=== PATIENT | female | born 1950 | race Caucasian/White ===

== ENCOUNTER 2022-02-06 07:52 | Outpatient (CLI) | payer MEDICARE, BC, SELFPAY ==
--- NOTE | 2022-02-06 08:15 | CRLHL7_ITS ---
For Patients: As a result of the Century Cures Act, medical imaging exams and procedure reports are released immediately into your electronic medical record. You may view this report before your referring provider. If you have questions, please contact your health care provider. BILATERAL SCREENING MAMMOGRAM WITH COMPUTER-AIDED DETECTION AND TOMOSYNTHESIS TECHNIQUE: CC and MLO views were obtained. These mammographic images have been obtained using full-field digital technique. These mammographic images were interpreted with the benefit of computer-aided detection. Breast Tomosynthesis was used in this interpretation. COMPARISON FILM: 07/12/20, 05/25/19, 05/23/2018. FINDINGS: There are scattered areas of fibroglandular density IMPRESSION: There is no radiographic evidence for malignancy. ASSESSMENT: BI-RADS Category 1: Negative RECOMMENDATION: Routine screening mammogram in 1 year. A lay language report of this examination will be provided to the patient. Vic Melvin M.D. Diagnostic Radiologist [email or web address] IVAN/Dictated by: Vic Melvin MD @ 02/09/2022 10:20:00 AM (Electronically Signed)
== END 2022-02-06 07:53 | disposition home or self-care (01) ==
LOC: MAMMO 07:56
PROVIDERS: PCP Family Medicine; Visit Provider Family Medicine
DX: Z12.31 Encounter for screening mammogram for malignant neoplasm of breast (principal)
CPT/HCPCS: 77063; 77067

== ENCOUNTER 2022-07-08 10:39 | Emergency (ER) | payer MEDICARE, BC, SELFPAY ==
[2022-07-08] VITALS (26 sets, daily range): BP systolic 141–171; BP diastolic 84–98; PULSE 67–86; RESP 18; TEMP 37.3; O2SAT 95–100; BMI 27.8
[2022-07-08 11:37] LABS: Basophils Absolute Auto 0.03 K/uL (0.00-0.30); Basophils Percent Auto 0.3 % (0.0-3.0); Eosinophils Absolute Auto 0.14 K/uL (0.00-0.50); Eosinophils Percent Auto 1.6 % (0.0-7.0); Hematocrit 41.9 % (33.0-51.0); Hemoglobin* 13.9 gm/dL (12.0-16.0); Immature Granulocytes Pct Auto 1.1 %; Lymphocytes Absolute Auto 3.66 K/uL (0.90-2.90); Lymphocytes Percent Auto 41.4 % (20-44); Mean Corpuscular HGB Conc 33 gm/dL (32-36); Mean Corpuscular Hemoglobin 30 pg (26-34); Mean Corpuscular Volume 91 fL (80-100); Neutrophils Absolute Auto 4.38 K/uL (1.7-7.0); Neutrophils Percent Auto 49.6 % (42.0-72.0); Platelet Count* 268 K/uL (140-440); RDW Coefficient of Variation % 12.5 % (11.5-15.5); White Blood Count* 8.84 K/uL (4.50-11.00)
[2022-07-08 11:45] LABS: Slide Review Reflex No
[2022-07-08 11:50] LABS: Albumin* 4.3 g/dL (3.3-5.0); Chloride* 107 mmol/L (96-114); Potassium* 4.3 mmol/L (3.6-5.1); Sodium* 143 mmol/L (135-149)
[2022-07-08 11:52] LABS: Creatinine* 0.8 mg/dL (0.5-1.5); Est. Creatinine Clearance* 40.22; Estimated Glomerular Filt Rate 78 ml/min
[2022-07-08 11:53] LABS: Alanine Aminotransferase* 20 U/L (4-35); Alkaline Phosphatase* 86 U/L (40-150); Aspartate Amino Transferase* 18 U/L (12-35); Bilirubin Direct* 0.1 mg/dL (0.0-0.5); Bilirubin Total* 0.5 mg/dL (0.1-1.5); Blood Urea Nitrogen* 16 mg/dL (7-30); Calcium* 9.4 mg/dL (8.4-10.6); Carbon Dioxide* 30 mmol/L (20-32); Glucose* 110 mg/dL (60-115); Lipase* 135 U/L (23-300); Total Protein* 7.4 g/dL (6.0-8.3)
--- NOTE | 2022-07-08 11:59 | ED.GENADULT ---
HPI - General Adult General Date Seen: 07/08/22 Chief complaint: Chest Pain Stated complaint: Heart palpitations, chest pressure Time Seen by Provider: 07/08/22 11:01 Source: patient Mode of arrival: ambulatory Limitations: no limitations History of Present Illness HPI narrative: Patient is a 71-year-old woman who presents for evaluation of some left-sided chest pressure which has been present on and off for the past 4 days. Pain comes and goes, not particularly associated with any activity, position, or time of day. She says it was there pretty much all day on Saturday, sporadically since then. She presents on Saturday to the ER for evaluation. It does not really radiate. She has had shortness of breath on and off but not necessarily associated with the chest pressure. She denies any nausea or vomiting, no diarrhea, no abdominal pain, no fevers or cough. No unusual leg pain or swelling. She does have a history of gastroesophageal reflux and heartburn thought that the symptoms were may be related to heartburn. She took some ranitidine on Saturday and felt that was may be helpful. She does take Prilosec 20 mg daily for gastroesophageal reflux. However, she was talking to a friend who told her that she really should probably come get this checked out. Right now, symptoms are mild. She does not have any known coronary artery disease. Her dad had a bypass surgery in his 60s, mom had a heart attack in her 70s. She does not smoke, drinks rarely. Related Data Home Medications Medication Instructions Recorded Confirmed aspirin 81 mg chewable tablet 81 mg PO QDAY 12/19/21 04/10/22 bupropion HCl 150 mg 24 hr tablet, 150 mg PO QAM 12/19/21 04/10/22 extended release carvedilol 6.25 mg tablet 6.25 mg PO QDAY 12/19/21 04/10/22 omeprazole 20 mg capsule,delayed 20 mg PO QDAY 12/19/21 04/10/22 release pravastatin 40 mg tablet 40 mg PO QPM 12/19/21 04/10/22 Lactobacillus acidophilus 1 10 mg PO QDAY 04/09/22 04/09/22 billion cell capsule exxnhqh-qtrnuinpj-ymtr 333 mg-133 1 tab PO QDAY 04/09/22 04/09/22 mg-5 mg tablet ergocalciferol (vitamin D2) 10 mcg 1,000 unit PO DAILY 04/09/22 04/09/22 (400 unit) tablet Previous Rx's Medication Instructions Recorded pantoprazole 40 mg tablet,delayed 40 mg PO QDAY #90 tabs 04/10/22 release (Protonix) amlodipine 5 mg tablet 5 mg PO QDAY #90 tabs 04/30/22 Allergies Allergy/AdvReac Type Severity Reaction Status Date / Time citalopram Allergy Severe memory loss Verified 04/10/22 08:20 duloxetine Allergy Severe paranoid Verified 04/10/22 08:20 Fish Containing Products Allergy Severe SOB Verified 04/10/22 08:20 gabapentin Allergy Severe memory loss Verified 04/10/22 08:20 amitriptyline Allergy Intermediate feels drunk Verified 04/10/22 08:20 desipramine Allergy Intermediate Depression Verified 04/10/22 08:20 alprazolam Allergy Mild tired Verified 04/10/22 08:20 milnacipran Allergy Mild can't sleep Verified 04/10/22 08:20 morphine Allergy Mild Nausea Verified 04/10/22 08:20 risodronate Allergy Mild jaw pain Uncoded 04/10/22 08:20 Sulfa Antibiotics Allergy Unknown hives, Uncoded 04/10/22 08:20 respiratory Review of Systems Status of ROS: Reports: 10 or more systems reviewed and unremarkable except as noted in History and below [facility] Medical History Allergic rhinitis Anxiety and depression Fibromyalgia Gastroesophageal reflux disease History of adenomatous polyp of colon (04/2018) History of cystocele (2006) Hyperlipidemia Hypertension Insomnia Osteopenia Surgical History History of inguinal hernia repair (02/22/10) History of laparoscopic appendectomy (10/25/07) History of total abdominal hysterectomy and bilateral salpingo-oophorectomy (1991) Hx of bilateral cataract extraction Family History Mother Colon cancer Social History Narrative: , 2 kids, non-smoker, social EtOH, retired Smoking Status: Never smoker How often do you have a drink containing alcohol: never How often do you have six or more drinks on one occasion: Never AUDIT-C Alcohol total score: 0 Non-prescribed substance use: denies use Little interest or pleasure in doing things: not at all Feeling down, depressed, or hopeless: not at all Exam Narrative: Exam Narrative: Vital signs as noted above. In general, an alert, well-appearing patient. Head: Normocephalic, atraumatic. Eyes: Pupils are equal reactive. Extraocular movements are full. Conjunctivae are normal. ENT: Mucous membranes are moist. Throat is normal. Neck: Supple without lymphadenopathy. Heart: Regular rate and rhythm. No murmur or rub. Chest wall is mildly tender to palpation in the left upper chest. No rash or lesion. Lungs: Clear bilaterally. No increased work of breathing, crackles or wheezes. Abdomen: Soft and nontender. No organomegaly. Extremities: Well perfused. No edema. No calf tenderness. Pulses intact. Neurologic: Patient is alert and oriented to person and place. Speech is fluent. Face is symmetric. Moves all extremities equally. Affect: Normal. Skin: Warm and dry. Well perfused. Const: Vital Signs, click to edit/add: Vital Signs - 24 hr 07/08/22 10:47 07/08/22 11:12 07/08/22 10:53 Temperature 99.2 F Pulse Rate 74 Pulse Rate [Right Pulse Oximeter] 77 Respiratory Rate 18 Blood Pressure Blood Pressure [Ri ght Upper Arm] 171/98 H Pulse Oximetry 100 98 99 Oxygen Delivery Me thod Room Air 07/08/22 11:00 07/08/22 11:01 07/08/22 11:02 Temperature Pulse Rate 78 81 83 Pulse Rate [Right Pulse Oximeter] Respiratory Rate Blood Pressure 147/96 H Blood Pressure [Ri ght Upper Arm] Pulse Oximetry 99 99 100 Oxygen Delivery Me thod 07/08/22 11:15 07/08/22 11:30 07/08/22 11:31 Temperature Pulse Rate 78 79 77 Pulse Rate [Right Pulse Oximeter] Respiratory Rate Blood Pressure 151/90 H Blood Pressure [Ri ght Upper Arm] Pulse Oximetry 95 98 96 Oxygen Delivery Me thod 07/08/22 11:32 07/08/22 11:45 07/08/22 12:00 Temperature Pulse Rate 86 71 73 Pulse Rate [Right Pulse Oximeter] Respiratory Rate Blood Pressure Blood Pressure [Ri ght Upper Arm] Pulse Oximetry 98 97 98 Oxygen Delivery Me thod 07/08/22 12:01 07/08/22 12:15 07/08/22 12:30 Temperature Pulse Rate 74 76 73 Pulse Rate [Right Pulse Oximeter] Respiratory Rate Blood Pressure 154/89 H Blood Pressure [Ri ght Upper Arm] Pulse Oximetry 97 99 96 Oxygen Delivery Me thod 07/08/22 12:31 07/08/22 12:48 07/08/22 13:00 Temperature Pulse Rate 80 81 71 Pulse Rate [Right Pulse Oximeter] Respiratory Rate Blood Pressure 141/93 H Blood Pressure [Ri ght Upper Arm] Pulse Oximetry 97 97 98 Oxygen Delivery Me thod 07/08/22 13:01 07/08/22 13:15 07/08/22 13:27 Temperature Pulse Rate 71 67 69 Pulse Rate [Right Pulse Oximeter] Respiratory Rate Blood Pressure 148/90 H Blood Pressure [Ri ght Upper Arm] Pulse Oximetry 98 96 98 Oxygen Delivery Me thod 07/08/22 13:30 07/08/22 13:31 07/08/22 13:32 Temperature Pulse Rate 67 71 71 Pulse Rate [Right Pulse Oximeter] Respiratory Rate Blood Pressure 147/87 H Blood Pressure [Ri ght Upper Arm] Pulse Oximetry 98 97 99 Oxygen Delivery Me thod 07/08/22 13:45 Temperature Pulse Rate 67 Pulse Rate [Right Pulse Oximeter] Respiratory Rate Blood Pressure Blood Pressure [Ri ght Upper Arm] Pulse Oximetry 98 Oxygen Delivery Me thod Course Course Hospital Course: EKG by my review shows a normal sinus rhythm, ventricular rate of 77 beats per minute. No acute ST segment changes. T-waves are unremarkable. Initial point of care troponin is 0. She takes a baby aspirin daily, did give her of 324 mg aspirin here. CBC shows a normal white blood cell count, hemoglobin of 13.9, normal platelets. Metabolic panel shows normal electrolytes, BUN of 16, creatinine 0.8, LFTs are normal and CRP is less than 0.5. Lipase is 135. She does not have any abdominal pain or tenderness, my suspicion for cholecystitis, biliary colic, pancreatitis is low. Certainly gastritis/peptic ulcer disease/gastroesophageal reflux remains a possibility for her symptoms given her past history. D-dimer did ultimately returned elevated at 0.9 and therefore I did a CT scan of the chest with contrast. By my review this did not show any significant PE. Final radiology report is as follows: 1. No acute pulmonary embolism. 2. Small centrilobular opacities within the peripheral dependent aspects the lungs suggesting small airways inflammation. There is no lung consolidation. Lungs are clear here, I do not hear any bronchospasm. O2 sats are normal. It is not clear to me that airway inflammation is causing a significant role in her symptoms. Certainly nothing to suggest need for antibiotics. Troponins are 0 x 2. Currently she is feeling well. I think it is reasonable to let her go home. Did discuss that while I think we have effectively ruled out a non-STEMI in the past several days, we have not ruled out the possibility of coronary artery disease, and I do think a stress test would be reasonable as an outpatient. I have asked her to follow up with Dr. Verdin this week. If at any time she has severe worsening symptoms, return to the emergency department. Continue aspirin. I do think it would also be reasonable to increase her omeprazole 40 mg daily and see if her symptoms are improved at all on that regimen. She is comfortable with that plan Vital Signs Vital signs: Initial Vital Signs Temperature 99.2 F 07/08/22 10:47 Temperature Source Temporal Artery Scan 07/08/22 10:47 Pulse Rate 77 07/08/22 10:47 Respiratory Rate 18 07/08/22 10:47 Blood Pressure 171/98 H 07/08/22 10:47 Blood Pressure Mean 122 07/08/22 10:47 Blood Pressure Position Sitting 07/08/22 10:47 Pulse Oximetry 100 07/08/22 10:47 Oxygen Delivery Method 07/08/22 10:47 Vital Signs Temperature 99.2 F 07/08/22 10:47 Pulse Rate 77 07/08/22 10:47 Respiratory Rate 18 07/08/22 10:47 Blood Pressure 171/98 H 07/08/22 10:47 Pulse Oximetry 100 07/08/22 10:47 Oxygen Delivery Method 07/08/22 10:47 Temperature 99.2 F 07/08/22 10:47 Pulse Rate 67 07/08/22 13:45 Respiratory Rate 18 07/08/22 10:47 Blood Pressure 147/87 H 07/08/22 13:31 Pulse Oximetry 98 07/08/22 13:45 Oxygen Delivery Method 07/08/22 10:47 Medical Decision Making Lab Data Labs: Lab Results 07/08/22 07/08/22 07/08/22 Range/Units 11:15 11:27 11:27 WBC 8.84 (4.50-11.00) K/uL RBC 4.60 (4.00-5.20) m/uL Hgb 13.9 (12.0-16.0) gm/dL Hct 41.9 (33.0-51.0) % MCV 91 (80-100) fL MCH 30 (26-34) pg MCHC 33 (32-36) gm/dL RDW Coeff of Anders 12.5 (11.5-15.5) % Plt Count 268 (140-440) K/uL Neut % (Auto) 49.6 (42.0-72.0) % Lymph % (Auto) 41.4 (20-44) % [place] % (Auto) 6.0 (0.0-11.0) % Eos % (Auto) 1.6 (0.0-7.0) % Baso % (Auto) 0.3 (0.0-3.0) % Neut # (Auto) 4.38 (1.7-7.0) K/uL Lymph # (Auto) 3.66 H (0.90-2.90) K/uL [place] # (Auto) 0.50 (0.00-0.90) K/UL Eos # (Auto) 0.14 (0.00-0.50) K/uL Baso # (Auto) 0.03 (0.00-0.30) K/uL D-Dimer Quant (PE/DVT) 0.90 H (0.00-0.50) ug/ml Sodium (135-149) mmol/L Potassium (3.6-5.1) mmol/L Chloride (96-114) mmol/L Carbon Dioxide (20-32) mmol/L BUN (7-30) mg/dL Creatinine (0.5-1.5) mg/dL Estimated Creat Clear Estimated GFR ml/min Glucose (60-115) mg/dL Calcium (8.4-10.6) mg/dL Total Bilirubin (0.1-1.5) mg/dL Direct Bilirubin (0.0-0.5) mg/dL AST (12-35) U/L ALT (4-35) U/L Alkaline Phosphatase (40-150) U/L C-Reactive Protein (0.5-1.0) mg/dL NT-Pro-B Natriuret Pep pg/mL Total Protein (6.0-8.3) g/dL Albumin (3.3-5.0) g/dL Lipase (23-300) U/L POC Troponin I 0.00 L (0.01-0.04) ng/ml 07/08/22 07/08/22 Range/Units 11:27 13:11 WBC (4.50-11.00) K/uL RBC (4.00-5.20) m/uL Hgb (12.0-16.0) gm/dL Hct (33.0-51.0) % MCV (80-100) fL MCH (26-34) pg MCHC (32-36) gm/dL RDW Coeff of Anders (11.5-15.5) % Plt Count (140-440) K/uL Neut % (Auto) (42.0-72.0) % Lymph % (Auto) (20-44) % [place] % (Auto) (0.0-11.0) % Eos % (Auto) (0.0-7.0) % Baso % (Auto) (0.0-3.0) % Neut # (Auto) (1.7-7.0) K/uL Lymph # (Auto) (0.90-2.90) K/uL [place] # (Auto) (0.00-0.90) K/UL Eos # (Auto) (0.00-0.50) K/uL Baso # (Auto) (0.00-0.30) K/uL D-Dimer Quant (PE/DVT) (0.00-0.50) ug/ml Sodium 143 (135-149) mmol/L Potassium 4.3 (3.6-5.1) mmol/L Chloride 107 (96-114) mmol/L Carbon Dioxide 30 (20-32) mmol/L BUN 16 (7-30) mg/dL Creatinine 0.8 (0.5-1.5) mg/dL Estimated Creat Clear 40.22 Estimated GFR 78 ml/min Glucose 110 (60-115) mg/dL Calcium 9.4 (8.4-10.6) mg/dL Total Bilirubin 0.5 (0.1-1.5) mg/dL Direct Bilirubin 0.1 (0.0-0.5) mg/dL AST 18 (12-35) U/L ALT 20 (4-35) U/L Alkaline Phosphatase 86 (40-150) U/L C-Reactive Protein < 0.5 L (0.5-1.0) mg/dL NT-Pro-B Natriuret Pep < 20 pg/mL Total Protein 7.4 (6.0-8.3) g/dL Albumin 4.3 (3.3-5.0) g/dL Lipase 135 (23-300) U/L POC Troponin I 0.00 L (0.01-0.04) ng/ml Discharge Plan Discharge Clinical Impression: Chest pain Patient Disposition: Home, Self-Care Condition: Improved Instructions: Chest Pain (DC) Additional Instructions: Follow-up with Dr. Verdin this week, consider stress test to complete evaluation for possible cardiac chest pain. Increase omeprazole to 40 mg daily for the next week or so to see if that improves her symptoms. If at any time you have severe or worsening symptoms, return to the emergency department. Prescriptions: No Action ergocalciferol (vitamin D2) 10 mcg (400 unit) tablet 1,000 unit PO DAILY Lactobacillus acidophilus 1 billion cell capsule 10 mg PO QDAY [id number]-emjczsans-lrtn 333-133-5 mg tablet 1 tab PO QDAY pantoprazole [Protonix] 40 mg tablet,delayed release (DR/EC) 40 mg PO QDAY Qty: 90 1RF bupropion HCl 150 mg tablet extended release 24 hr 150 mg PO QAM carvedilol 6.25 mg tablet 6.25 mg PO QDAY Rx Instructions: must administer with a meal/food omeprazole 20 mg capsule,delayed release(DR/EC) 20 mg PO QDAY pravastatin 40 mg tablet 40 mg PO QPM aspirin 81 mg tablet,chewable 81 mg PO QDAY amlodipine 5 mg tablet 5 mg PO QDAY Qty: 90 3RF Follow Up/Referrals: Vic Verdin MD [Primary Care Provider] - Stand Alone Forms: [facility] Info Instructions
[2022-07-08 12:02] LABS: C Reactive Protein* < 0.5 mg/dL (0.5-1.0)
[2022-07-08 12:03] LABS: NT Pro B Type NatriureticPept* < 20 pg/mL
--- NOTE | 2022-07-08 12:13 | CRLHL7_ITS ---
For Patients: As a result of the Cures Act, medical imaging exams and procedure reports are released immediately into your electronic medical record. You may view this report before your referring provider. If you have questions, please contact your health care provider. HISTORY: Chest pain. Elevated D-dimer. TECHNIQUE: Intravenous contrast enhanced CT of the chest. 95 mL Isovue 370 intravenous contrast administered. COMPARISON: No prior. FINDINGS: There is no acute pulmonary embolism. No thoracic aortic aneurysm. No pericardial effusion. No enlarged mediastinal or hilar lymph nodes. No enlarged axillary lymph nodes. There are small centrilobular reticulonodular opacities within the more dependent portions of the lungs suggesting small airways disease. There is no lung consolidation. No pleural effusion or pneumothorax. Small hiatal hernia. Mild degenerative changes spine. No acute fractures. IMPRESSION: 1. No acute pulmonary embolism. 2. Small centrilobular opacities within the peripheral dependent aspects the lungs suggesting small airways inflammation. There is no lung consolidation. Dictated by Sourav Muir MD @ 07/08/2022 1:44:34 PM Please note that all CT scans at this facility use dose modulation, iterative reconstruction, and/or weight-based dosing when appropriate to reduce radiation dose to as low as reasonably achievable. Dictated by: Sourav Muir MD @ 07/08/2022 13:44:38 (Electronically Signed)
== END 2022-07-08 14:10 | disposition home or self-care (01) ==
PROVIDERS: Emergency Provider Emergency Medicine; PCP Family Medicine
DX: R07.89 Other chest pain (principal)
CPT/HCPCS: 36415; 71260; 80048; 80076; 83690; 83880; 84484; 85025; 85379; 86140; 93005; 94761; 99284; 99285; Q9967

== ENCOUNTER 2022-07-24 12:36 | Outpatient (CLI) | payer MEDICARE, BC, SELFPAY ==
[2022-07-24 14:03] VITALS: BP 122/78; PULSE 83; RESP 18
--- NOTE | 2022-07-24 14:41 | W.PM.STED ---
Stress Test Note Date Time Seen by Provider: 13:49 Date Seen: 07/24/22 Date of test: 07/24/22 Providers Primary care provider: Vic Verdin Stress test physician: Yokasta Ortiz Stress Test Note Stress test ordered: Stress Echo Indication for test: Chest pain Stress test medicine: None Results discussion: Resting EKG: Sinus rhythm, 68 beats per minute. Resting blood pressure 132/78 Stress test: Patient exercised following standard Yobany protocol on the treadmill. She was able to exercise to 6 minutes 43 seconds, stopping due to exercise fatigue and shortness of breath. She had no chest pain. There was no definitive ischemia noted. She had occasional PVC seen. Patient achieved 8.1 Mets with this level of exercise. A maximum heart rate of 138 beats per minute was achieved with this being 109% of a calculated target heart rate [place] 126[place] [address]. Echo images are pending. Impression: Subjectively negative, objectively negative EKG portion of this stress test. Follow up suggested: Patient was discharged home in stable condition. She understands the echo images need to be read by Cardiology to couple this test for a full formal diagnostic test.
== END 2022-07-24 12:37 | disposition home or self-care (01) ==
PROVIDERS: PCP Family Medicine; Visit Provider Family Medicine
DX: R07.89 Other chest pain (principal)
CPT/HCPCS: 93016; 93325; 93351

== ENCOUNTER 2023-02-20 08:58 | Outpatient (CLI) | payer MEDICARE, BC, SELFPAY ==
--- NOTE | 2023-02-20 09:15 | CRLHL7_ITS ---
For Patients: As a result of the Century Cures Act, medical imaging exams and procedure reports are released immediately into your electronic medical record. You may view this report before your referring provider. If you have questions, please contact your health care provider. BILATERAL SCREENING MAMMOGRAM WITH COMPUTER-AIDED DETECTION AND TOMOSYNTHESIS TECHNIQUE: CC and MLO views were obtained. These mammographic images have been obtained using full-field digital technique. These mammographic images were interpreted with the benefit of computer-aided detection. Breast Tomosynthesis was used in this interpretation. COMPARISON FILM: 02/06/22, 05/23/18, 05/21/17. FINDINGS: There are scattered areas of fibroglandular density IMPRESSION: There is no radiographic evidence for malignancy. ASSESSMENT: BI-RADS Category 2: Benign RECOMMENDATION: Routine screening mammogram in 1 year. A lay language report of this examination will be provided to the patient. Vic Melvin M.D. Diagnostic Radiologist [email or web address] IVAN/Dictated by: Vic Melvin MD @ 02/20/2023 12:14:00 PM (Electronically Signed)
== END 2023-02-20 08:59 | disposition home or self-care (01) ==
LOC: MAMMO 08:59
PROVIDERS: PCP Family Medicine; Visit Provider Family Medicine
DX: Z12.31 Encounter for screening mammogram for malignant neoplasm of breast (principal)
CPT/HCPCS: 77063; 77067

== ENCOUNTER 2023-03-08 15:00 | Emergency (ER) | payer MEDICARE, BC, SELFPAY ==
[2023-03-08 15:09] VITALS: BP 155/91; PULSE 71; RESP 18; TEMP 36.6; O2SAT 99; BMI 28.0
--- NOTE | 2023-03-08 15:23 | ED_ITS ---
HPI - General Adult General Chief complaint: Back Injury/Pain Stated complaint: back pain,right leg Time Seen by Provider: 03/08/23 15:10 History of Present Illness HPI narrative: History of sitting abnormally today and having some pain in her back and right low leg. Starts in the sciatic notch radiates down her right lateral ankle. She has had degenerative disc disease noted on x-ray this summer with Dr. Verdin, she has done some chiropractic and PT in that is been helpful. Denies bowel or bladder change fever chills perineal numbness. No significant trauma. Related Data Home Medications Medication Instructions Recorded Confirmed aspirin 81 mg chewable tablet 81 mg PO QDAY 12/19/21 12/03/22 Lactobacillus acidophilus 1 10 mg PO QDAY 04/09/22 12/03/22 billion cell capsule zexaysy-fzcqsgwbt-yuis 333 mg-133 1 tab PO QDAY 04/09/22 12/03/22 mg-5 mg tablet ergocalciferol (vitamin D2) 10 mcg 1,000 unit PO DAILY 04/09/22 12/03/22 (400 unit) tablet albuterol sulfate 90 mcg/actuation 2 inh inhalation Q4H PRN 09/25/22 12/03/22 breath activated powder inhaler Previous Rx's Medication Instructions Recorded famotidine 40 mg tablet 40 mg PO QHS #90 tabs 09/25/22 bupropion HCl 300 mg 24 hr tablet, 300 mg PO QAM #90 tabs 12/03/22 extended release cyclobenzaprine 5 mg tablet 5 mg PO QHS #30 tabs 12/03/22 naproxen 500 mg tablet 500 mg PO BID #60 tabs 12/03/22 carvedilol 6.25 mg tablet 6.25 mg PO QDAY #90 tabs 12/13/22 pravastatin 40 mg tablet 40 mg PO QHS #90 tabs 12/21/22 amlodipine 5 mg tablet 5 mg PO QDAY #90 tabs 01/30/23 pantoprazole 40 mg tablet,delayed 40 mg PO QDAY #90 tabs 01/30/23 release (Protonix) hydrocodone 7.5 mg-acetaminophen 1 tab PO Q8H PRN pain #14 tabs 03/08/23 325 mg tablet prednisone 20 mg tablet 20 mg PO BID #10 tabs 03/08/23 Allergies Allergy/AdvReac Type Severity Reaction Status Date / Time citalopram Allergy Severe memory loss Verified 12/03/22 11:24 duloxetine Allergy Severe paranoid Verified 12/03/22 11:24 Fish Containing Products Allergy Severe SOB Verified 12/03/22 11:24 gabapentin Allergy Severe memory loss Verified 12/03/22 11:24 amitriptyline Allergy Intermediate feels drunk Verified 12/03/22 11:24 desipramine Allergy Intermediate Depression Verified 12/03/22 11:24 alprazolam Allergy Mild tired Verified 12/03/22 11:24 milnacipran Allergy Mild can't sleep Verified 12/03/22 11:24 morphine Allergy Mild Nausea Verified 12/03/22 11:24 risodronate Allergy Mild jaw pain Uncoded 12/03/22 11:24 Sulfa Antibiotics Allergy Unknown hives, Uncoded 12/03/22 11:24 respiratory Review of Systems Status of ROS: Reports: 6 or more systems reviewed and unremarkable except as noted in History and below [facility] Medical History (Updated 03/08/23 @ 15:28 by Dre Price MD) Primary hypertension ?I10 - Essential (primary) hypertension (ICD-10) Mixed hyperlipidemia ?E78.2 - Mixed hyperlipidemia (ICD-10) Osteopenia ?M85.80 - Other specified disorders of bone density and structure, unspecified site (ICD-10) Insomnia ?G47.00 - Insomnia, unspecified (ICD-10) History of cystocele (2006) ?Z87.448 - Personal history of other diseases of urinary system (ICD-10) History of adenomatous polyp of colon (04/2018) ?Z86.010 - Personal history of colonic polyps (ICD-10) Gastroesophageal reflux disease ?K21.9 - Gastro-esophageal reflux disease without esophagitis (ICD-10) Fibromyalgia ?M79.7 - Fibromyalgia (ICD-10) Anxiety and depression ?F41.9 - Anxiety disorder, unspecified (ICD-10) ?F32.A - Depression, unspecified (ICD-10) Allergic rhinitis ?J30.9 - Allergic rhinitis, unspecified (ICD-10) Surgical History (Updated 07/30/22 @ 03:15 by Vic Verdin MD) Hx of bilateral cataract extraction ?Z98.41 - Cataract extraction status, right eye (ICD-10) ?Z98.42 - Cataract extraction status, left eye (ICD-10) History of total abdominal hysterectomy and bilateral salpingo-oophorectomy (1991) ?Z90.710 - Acquired absence of both cervix and uterus (ICD-10) ?Z90.722 - Acquired absence of ovaries, bilateral (ICD-10) ?Z90.79 - Acquired absence of other genital organ(s) (ICD-10) History of laparoscopic appendectomy (10/25/07) ?Z90.49 - Acquired absence of other specified parts of digestive tract (ICD- 10) History of inguinal hernia repair (02/22/10) ?Z98.890 - Other specified postprocedural states (ICD-10) ?Z87.19 - Personal history of other diseases of the digestive system (ICD-10) Family History (Updated 07/30/22 @ 03:12 by Vic Verdin MD) Mother Colon cancer Diabetes Stroke Father Coronary artery disease, Onset Age: 65 Social History Narrative: , 2 kids, non-smoker, social EtOH, retired Smoking Status: Never smoker How often do you have a drink containing alcohol: never How often do you have six or more drinks on one occasion: Never AUDIT-C Alcohol total score: 0 Non-prescribed substance use: denies use Little interest or pleasure in doing things: more than half the days Feeling down, depressed, or hopeless: more than half the days Exam Narrative: Exam Narrative: Objective: Patient's vital signs look largely unremarkable other than her blood pressure is little elevated Negative straight leg raise bilaterally, mild pain and tenderness in the right paravertebral muscles of the right low back. No warmth erythema Ambulates without difficulty Lower extremity strength is normal Const: Vital Signs, click to edit/add: Vital Signs - 24 hr 03/08/23 15:09 Temperature 97.9 F Pulse Rate [Pulse Oximeter] 71 Respiratory Rate 18 Blood Pressure [Ri ght Upper Arm] 155/91 H Pulse Oximetry 99 Oxygen Delivery Me thod Room Air Course Vital Signs Vital signs: Initial Vital Signs Temperature 97.9 F 03/08/23 15:09 Temperature Source Temporal Artery Scan 03/08/23 15:09 Pulse Rate 71 03/08/23 15:09 Respiratory Rate 18 03/08/23 15:09 Blood Pressure 155/91 H 10/13/23 15:09 Blood Pressure Mean 112 H 03/08/23 15:09 Blood Pressure Position Supine 03/08/23 15:09 Pulse Oximetry 99 03/08/23 15:09 Oxygen Delivery Method Room Air 03/08/23 15:09 Vital Signs Temperature 97.9 F 03/08/23 15:09 Pulse Rate 71 03/08/23 15:09 Respiratory Rate 18 03/08/23 15:09 Blood Pressure 155/91 H 03/08/23 15:09 Pulse Oximetry 99 03/08/23 15:09 Oxygen Delivery Method Room Air 03/08/23 15:09 Temperature 97.9 F 03/08/23 15:09 Pulse Rate 71 03/08/23 15:09 Respiratory Rate 18 03/08/23 15:09 Blood Pressure 155/91 H 03/08/23 15:09 Pulse Oximetry 99 03/08/23 15:09 Oxygen Delivery Method Room Air 03/08/23 15:09 Medical Decision Making MDM Narrative Medical decision making narrative: Patient has a history of low back pain and some leg pain, now with known L4 degenerative disease by prior x-ray by her history. The patient has what a ppears to be a radiculitis occurring, does not appear to have any swelling in the leg or DVT symptoms. Fairly sudden onset. At this point would recommend anti-inflammatory in the form of naproxen she is taking, add prednisone 20 b.i.d. starting tomorrow for few days will also give 50 mg now, will give her Mcintosh now and then Mcintosh for home to use as needed. Follow up with primary care in the next 2-3 days certainly sooner changes or concerns. May need additional imaging physical therapy and chiropractic r other treatments for now I think we can simply treat for pain and inflammation and see if that gets better, she was comfortable this. Discharge Plan Discharge Clinical Impression: Radiculitis, Acute low back pain Patient Disposition: Home w/ Parent or Adult Condition: Stable Additional Instructions: Prednisone as prescribed, may continue the Naprosyn, would also use Mcintosh sparingly for significant pain. Recheck with regular doctor next couple of days certainly sooner changes or concerns. Activity Level: Light activity Discharge Diet: Regular Prescriptions: New hydrocodone-acetaminophen 7.5-325 mg tablet 1 tab PO Q8H PRN (Reason: pain) Qty: 14 0RF prednisone 20 mg tablet 20 mg PO BID Qty: 10 0RF No Action ergocalciferol (vitamin D2) 10 mcg (400 unit) tablet 1,000 unit PO DAILY Lactobacillus acidophilus 1 billion cell capsule 10 mg PO QDAY xpbrcse-wgugvgofc-bhte 333-133-5 mg tablet 1 tab PO QDAY albuterol sulfate 90 mcg/actuation aerosol powdr breath activated 2 inh inhalation Q4H PRN famotidine 40 mg tablet 40 mg PO QHS Qty: 90 3RF naproxen 500 mg tablet 500 mg PO BID Qty: 60 2RF cyclobenzaprine 5 mg tablet 5 mg PO QHS Qty: 30 1RF bupropion HCl 300 mg tablet extended release 24 hr 300 mg PO QAM Qty: 90 1RF aspirin 81 mg tablet,chewable 81 mg PO QDAY carvedilol 6.25 mg tablet 6.25 mg PO QDAY Qty: 90 1RF Rx Instructions: must administer with a meal/food pravastatin 40 mg tablet 40 mg PO QHS Qty: 90 1RF pantoprazole [Protonix] 40 mg tablet,delayed release (DR/EC) 40 mg PO QDAY Qty: 90 3RF amlodipine 5 mg tablet 5 mg PO QDAY Qty: 90 3RF Follow Up/Referrals: Vic Verdin MD [Primary Care Provider] - Stand Alone Forms: MyHealth Info Instructions
[2023-03-08] MEDS: predniSONE 10 MG TABLET 50 MG PO (15:41)
[2023-03-08] MEDS: HYDROCODONE/ACETAMIN 7.5-325 TABLET 1 TAB PO (15:41)
== END 2023-03-08 15:59 | disposition home or self-care (01) ==
LOC: ED 15:39
PROVIDERS: Emergency Provider Family Medicine; PCP Family Medicine
DX: M54.16 Radiculopathy, lumbar region (principal)
CPT/HCPCS: 99283; 99284; A9270; J7512

== ENCOUNTER 2023-07-23 09:42 | Outpatient (CLI) | payer MEDICARE, BC, SELFPAY | END 2023-07-23 09:43 | disposition home or self-care (01) | PROVIDERS: PCP Family Medicine; Visit Provider Family Medicine | DX: E78.2 Mixed hyperlipidemia (principal); I10 Essential (primary) hypertension | CPT/HCPCS: 80048; 80061; 84460; 85025 ==

== ENCOUNTER 2023-08-08 09:28 | Outpatient (CLI) | payer MEDICARE, BC, SELFPAY ==
--- NOTE | 2023-08-08 11:18 | W.ANESCHARGE ---
Anesthesia Charges Start Date/Time Anesthesia Start Date: 08/08/23 Anesthesia Start Time: 10:40 Stop Date/Time Anesthesia Stop Date: 08/08/23 Anesthesia Stop Time: 11:17
--- NOTE | 2023-08-08 12:14 | W.ANESCHARGE ---
Anesthesia Charges Start Date/Time Anesthesia Start Date: 08/08/23 Anesthesia Start Time: 10:40 Stop Date/Time Anesthesia Stop Date: 08/08/23 Anesthesia Stop Time: 11:17 Summary Extremes of Age - Over 70 or under 1: MDA
== END 2023-08-08 09:29 | disposition home or self-care (01) ==
LOC: OP CLINIC 09:28
PROVIDERS: PCP Family Medicine; Visit Provider Surgery
DX: Z12.11 Encounter for screening for malignant neoplasm of colon (principal); K63.5 Polyp of colon; K62.1 Rectal polyp; Z80.0 Family history of malignant neoplasm of digestive organs; Z86.010 Personal history of colon polyps
CPT/HCPCS: 00811; 45385; 88305; 99100; J2405; J2704

== ENCOUNTER 2023-09-26 12:30 | Outpatient (CLI) | payer MEDICARE, BC, SELFPAY ==
--- OUTSIDE RECORDS SUMMARY | 2023-09-26 12:33 | XMS_ITS | Clinical Summary ---
Author Name Unknown Organization [facility] Address [address] [place] [address] Care Team Providers Care Surface Hydrologist Name Role Phone Mau Chirinos Primary Care Provider [phone] Nathan Michele MD Unavailable [phone] Allergies Active Allergy Reactions Criticality Noted Date Comments Duloxetine Hcl 02/20/2013 Sulfa Antibiotics Shortness Of Breath,Rash High 01/25 Medications Medication Sig Dispensed Refills Start Date End Date Status amLODIPine (NORVASC) 5 MG tablet Take 5 mg by mouth daily Active aspirin 81 MG EC tablet Take 81 mg by mouth daily Active buPROPion (WELLBUTRIN SR) 150 MG 12 hr tablet Take 150 mg by mouth 2 times daily Active carvedilol (COREG) 6.25 MG tablet Take 6.25 mg by mouth 2 times daily (with meals) Active pravastatin (PRAVACHOL) 40 MG tablet Take 40 mg by mouth daily Active pantoprazole sodium (PROTONIX) 40 MG packet Take 1 packet by mouth daily Active Probiotic Product (PROBIOTIC PO) Active VITAMIN D PO Active Ibcvpqz-Pafdgcvpa-Qjrc 333-133-5 MG TABS per tablet Take 1 tablet by mouth daily Active Active Problems No known active problems Social History Tobacco Use Types Packs/Day Years Used Date Smoking Tobacco: Never Smokeless Tobacco: Never Tobacco Cessation:Counseling Given: Not Answered Alcohol Use Standard Drinks/Week Comments No 0 (1 standard drink = 0.6 oz pur e alcohol) Adolescent Education Answer Date Record ed Getting School Help Needed Not on file 02/15 Sex and Gender Information Value Date Recorded Sex Assigned at Not on file Gender Identity Not on file Sexual Orientation Not on file Last Filed Vital Signs Vital Sign Reading Time Taken Comments Blood Pressure 120/80 07/12/2022 10:05 AM DYE LAB TECHNICIAN Pulse 90 07/12/2022 10:05 AM DYE LAB TECHNICIAN Temperature 36.7 ??C (98 ??F) 02/23/2013 12:53 PM CDT Respiratory Rate 16 02/23/2013 12:45 PM CDT Oxygen Saturation 93% 02/23/2013 12:53 PM CDT Inhaled Oxygen Concentration - - Weight 68 kg (150 lb) 07/12/2022 10:05 AM DYE LAB TECHNICIAN Pt reported Height 157.5 cm (5' 2) 07/12/2022 10:05 AM DYE LAB TECHNICIAN Pt reported Body Mass Index 27.44 07/12/2022 10:05 AM DYE LAB TECHNICIAN Plan of Treatment Health Maintenance Due Date Last Done Comments ADVANCE CARE PLANNING 1949 ANNUAL REVIEW OF HM ORDERS 1949 CT COLONOGRAPHY 1949 DEXA 1949 FIT 1949 FLEX SIG 1949 GLUCOSE 1949 LIPID 1949 MAMMO SCREENING 1949 sDNA (Cologuard) 1949 COLONOSCOPY 12/28/1959 COLORECTAL CANCER SCREENING 12/28/1959 HEPATITIS C SCREENING 12/28/1967 ZOSTER IMMUNIZATION (1 of 2) 12/28/1999 RSV VACCINE ( & 60+) (1 - 1-dose 60+ series) 2009 FALL RISK ASSESSMENT 2014 MEDICARE ANNUAL WELLNESS VISIT 2014 DTAP/TDAP/TD IMMUNIZATION (1 - Tdap) 09/29/2015 09/28/2015, 11/20/2005 COVID-19 Vaccine ( - season) 2023 PHQ-2 (once per calendar year) 2023 INFLUENZA VACCINE (Season Ended) 2024 03/17/2015, 03/04/2014, 04/01/2012, Additional history exists Pneumococcal Vaccine: 65+ Years Completed 05/23/2018, 03/17/2015 HPV IMMUNIZATION Aged Out No longer e ligible based on patient's age to complete this topic IPV IMMUNIZATION Aged Out No longer e ligible based on patient's age to complete this topic MENINGITIS IMMUNIZATION Aged Out No l onger eligible based on patient's age to complete this topic RSV MONOCLONAL ANTIBODY Aged Out No l onger eligible based on patient's age to complete this topic Medical Devices Implanted Type Area Ledger Poster Device Identifier Shelf Expiration Date Model / Serial / Lot Mesh Ultrapro Hernia Oval [id number] Uhsov Implanted:Qty: 1 on 02/23/2013 by Nathan Michele MD at [facility] Left: Groin 10/23/2013 [facility] / / [id number] Care Teams Surface Hydrologist Relationship Specialty Start Date End Date Ph[place], Phunt [facility] [address] [facility] [place] [address] PCP - General Internal Medicine 02/02/13 Nathan Michele MD [address] [facility] [place] [address] Assigned Surgical Provider 07/21/22
--- OUTSIDE RECORDS SUMMARY | 2023-09-26 12:33 | XMS_ITS | Clinical Summary ---
Author Name Unknown Organization [facility] Address [place], [place] [address] Care Team Providers Care Public Works Commissioner Name Role Phone Mau Chirinos MB Primary Care Provider [phone] Allergies Active Allergy Reactions Criticality Noted Date Comments Alprazolam Other - Describe In Comment Field 05/01/2018 Sedated feeling Amitriptyline Other - Describe In Comment Field 05/01/2018 feels drunk Citalopram Other - Describe In Comment Field 05/01/2018 Loss of memory Desipramine Other - Describe In Comment Field 05/01/2018 Fowler depressed Duloxetine Other - Describe In Comment Field 05/01/2018 paranoia Fish Containing Products Shortness Of Breath 05/01/2018 Gabapentin Other - Describe In Comment Field 05/01/2018 Memory loss Milnacipran Sleep Disturbances 05/01/2018 Morphine Nausea And Vomiting 05/01/2018 Sulfa (Sulfonamide Antibiotics) Shortness Of Breath,Rash 07/13/2015 Medications Medication Sig Dispensed Refills Start Date End Date Status alendronate (FOSAMAX) 70 mg tabletIndications:postm enopausal osteoporosis Take 70 mg by mouth once a week in the morning. 10/04/2017 Active buPROPion (WELLBUTRIN XL) 150 mg Extended-Release tabletIndications:anxie ty with depression Take 150 mg by mouth once daily. 10/04/2017 Active SPCJFTO-OYXVKRAWE-STMR ORALIndications:supplem ent Take 1 tablet by mouth once daily. 01/26/2010 Active ERGOCALCIFEROL, VITAMIN D2, ORALIndications:vitamin supplement Take 1,000 Int'l Units by mouth once daily. 09/28/2009 Active ibuprofen (ADVIL; MOTRIN) 200 mg tablet Take 2 tablets by mouth every 4 hours if needed for Pain or Headache. 09/11/2010 Active Lactobacillus acidophilus (PROBIOTIC ORAL)Indications:digest oswaldo aid Take 1 capsule by mouth once daily. 04/01/2012 Active Melatonin 5 mg tab Take 1 tablet by mouth at bedtime if needed for Sleep. 03/12/2012 Active Coenzyme Q10 (CO Q-10) 10 mg cap Take 300 mg by mouth once daily. Active Active Problems No known active problems Encounters Date Type Department Care Team Description 08/08/2023 Lab Requisition [facility] [phone] Jennifer Barroso MD from Last 3 Months Social History Tobacco Use Types Packs/Day Years Used Date Smoking Tobacco: Never Smokeless Tobacco: Never Alcohol Use Standard Drinks/Week Comments Not Currently 0 (1 standard drink = 0.6 oz pur e alcohol) Sex and Gender Information Value Date Recorded Sex Assigned at Not on file Gender Identity Not on file Sexual Orientation Not on file Obstetrics History Last Filed Vital Signs Vital Sign Reading Time Taken Comments Blood Pressure 140/82 06/01/2019 10:09 AM BENCH TOOL MAKER Pulse 88 06/01/2019 10:09 AM BENCH TOOL MAKER Temperature 36.3 ??C (97.4 ??F) 05/06/2018 11:[address] Respiratory Rate 18 06/01/2019 10:09 AM BENCH TOOL MAKER Oxygen Saturation 99% 05/06/2018 12:15 PM BENCH TOOL MAKER Inhaled Oxygen Concentration - - Weight 67 kg (147 lb 12.8 oz) 05/06/2018 10:31 A M [employer]CH TOOL MA[employer] Height 154.9 cm (5' 1) 05/06/2018 10:31 AM BENCH TOOL MAKER Body Mass Index 27.93 05/06/2018 10:31 AM BENCH TOOL MAKER Plan of Treatment Health Maintenance Due Date Last Done Comments Tdap 1960 Depression screening for age 12+ 1961 BMI (ht and wt on same day) for age 18+ 12/28/1967 Hepatitis C screening for age 18-79 12/28/1967 Tetanus booster 1969 Lipids for age 45-75 1994 Mammogram for age 45-75 1994 Zoster (shingles) series for age 50+ (1 of 2) 12/28/19 00 DEXA/DXA scan for age 65+ 2014 Pneumococcal series for age 65+ (1 of 1 - PCV) 015 COVID-19 vaccine series (1 - season) 3 Influenza for age 65+ 01/26/2024 Colonoscopy through age 75 05/06/2028 05/06/2018 Procedures Procedure Name Priority Date/Time Associated Diagnosis Comments LAB TRACKING EVENT Routine 08/08/2023 10 :50 AM CDT PATH TISSUE EXAM Routine 08/08/2023 10:5 0 AM CDT COLONOSCOPY 05/06/2018 10:57 AM BENCH TOOL MAKER from Last 3 Months or Most Recently Relevant to Health Maintenance Results * LAB TRACKING EVENT (08/08/2023 10:50 AM CDT) Other (Other) Client Collect / Unknown 08/08/2023 10:50 AM CDT 08/08/2023 8:47 PM CDT Jennifer Barroso MD LAB BILL ONLY [facility] [address] [place] [id number], * PATH TISSUE EXAM (08/08/2023 10:50 AM CDT) Case Report Pathology Report ?Case: [id number] ? Authorizing Provider: ??Jennifer Barroso MD ?Collected: ? 08/08/2023 1050 ? Ordering Location: ? [facility] ?Received: ?08/08/20232114 ? Pathologist: ? Vivien Jin MD ? Specimens: ?? A) - Transverse Colon Polyp ? B) - Ascending Colon Polyp ? C) - Splenic Flexure Biopsy ? 08/09/2023 11:13 AM CDT [facility] Final Diagnosis A) COLON, TRANSVERSE, POLYPECTOMY: 1. Sessile serrated adenoma 2. Negative for overt dysplasia 3. Per the colonoscopy report: ?? a. Polyp size: 6 mm ?? b. Resection: Complete ?? c. Retrieval: Complete B) COLON, ASCENDING, POLYPECTOMIES: 1. Tubular adenomas (2) 2. Negative for high grade dysplasia 3. Per the colonoscopy report: ?? a. Polyp sizes: 3 mm - 4 mm ?? b. Resection: Complete ?? c. Retrieval: Complete C) COLON, SPLENIC FLEXURE, POLYPECTOMIES: 1. Tubular adenomas (2) 2. Negative for high grade dysplasia 3. Per the colonoscopy report: ?? a. Polyp sizes: 3 mm - 4 mm ?? b. Resection: Complete ?? c. Retrieval: Complete 08/09/2023 11:13 AM CDT [facility] Clinical Information Surveillance colonoscopy 08/09/2023 11:13 AM CDT [facility] Gross Description A) Received in formalin are 5 bernardo mucosal fragments ranging from 2 mm to 5 mm in greatest dimension, which are entirely submitted in one cassette. It is labeled with the patient's name and designated transverse colon polyp. B) Received in formalin are 9 bernardo mucosal fragments averaging 2 mm in greatest dimension, which are entirely submitted in one cassette. It is labeled with the patient's name and designated ascending colon polyp. C) Received in formalin are 12 bernardo mucosal fragments ranging from 2 mm to 5 mm in greatest dimension, which are entirely submitted in one cassette. It is labeled with the patient's name and designated splenic flexure biopsy. Markie Esteban 08/08/2023 9:21 PM 08/09/2023 11:13 AM CDT [facility] Microscopic Description The final diagnosis is based on microscopic examination of appropriate sections of all specimens. 08/09/2023 11:13 AM CDT [facility] Additional Information Interpreted at [facility] - [address] [facility] [address], [place] [address] 08/09/2023 11:13 AM CDT [facility] Other (Transverse Colon Polyp) 08/08/2023 10:50 AM CDT 08/08/2023 9:15 PM CDT Specimen (specimen) (Ascending Colon Polyp) 08/08/2023 10:50 AM CDT 08/08/2023 9:15 PM CDT Specimen (specimen) (Splenic Flexure Biopsy) 08/08/2023 10:50 AM CDT 08/08/2023 9:15 PM CDT Jennifer Barroso MD PATHOLOGY/CYTOLOGY [facility] [address] [place] [address], * COLONOSCOPY (05/06/2018 10:57 AM BENCH TOOL MAKER) 05/06/2018 10:5 7 AM BENCH TOOL MAKER Narrative Transcriptions Steve Walker MD - 05/06/2018 11:29 AM CST Patient Name: Zo Yang Procedure Date: 05/06/2018 Gender: Female Date of : 1950 Admit Type: Ambulatory Procedure: Colonoscopy Proceduralist: Valentin Walker [facility] Referring MD: Mau Chirinos Indications/Pre-Op Diagnosis: Surveillance: Personal history ofadenomatous polyps on last colonoscopy 5 years ago Medications: Propofol per Anesthesia Procedure Description: The procedure, indications, potential complications, (bleeding, perforation, infection, adverse medication reaction, missed lesionsor polyps) and alternatives available were explained to the patient, who appeared to understand and indicated this. Opportunity for questionswas provided and informed consent obtained. The colonoscopy was passed through the anus and advanced to thececum, identified by appendiceal orifice and ileocecal valve. Thecolonoscopy was performed with ease. The patient tolerated the procedure well.The quality of the bowel preparation was excellent. Complications: No immediate complications. Estimated Blood Loss & Specimen: Estimated blood loss was minimal. Specimen collected: Yes and sent to Laboratory Findings: The perianal and digital rectal examinations were normal. Pertinent negatives include normal sphincter tone. The terminal ileum appeared normal. A 3 mm polyp was found in the cecum. The polyp was sessile. The polyp was removed with a cold snare. Resection and retrieval werecomplete. Multiple small and large-mouthed diverticula were found in the recto-sigmoid colon and sigmoid colon. A 4 mm polyp was found in the rectum. The polyp was sessile. Thepolyp was removed with a cold snare. Resection and retrieval werecomplete. The exam was otherwise without abnormality. No additional abnormalities were found on retroflexion. Impressions/Post-Op Diagnosis: - The examined portion of the ileum was normal. - One 3 mm polyp in the cecum, removed with a cold snare. Resectedand retrieved. - Diverticulosis in the recto-sigmoid colon and in the sigmoidcolon. - One 4 mm polyp in the rectum, removed with a cold snare. Resectedand retrieved. - The examination was otherwise normal. Recommendation: - Await pathology results. - Dr. Walker's office will contact you with biopsy/pathology results when available. Moderate Sedation: Deep sedation per anesthesia. Valentin Walker, 05/06/2018 11:29:18 AM This report has been signed electronically. Note Initiated On: 05/06/2018 10:57 AM Steve Walker MD PROCEDURE ORD from Last 3 Months or Most Recently Relevant to Health Maintenance Insurance Payer Benefit Plan / Group Subscriber ID Effective Dates Phone Address Type MEDICARE PART B - HB USE ONLY MEDICARE PART B HB ONLY [id number] 2014-Presen t ATTN: CLAIMS [address] [place] [address] MEDICARE PART B - HB USE ONLY MEDICARE PART B HB ONLY [id number] 2014-Presen t ATTN: CLAIMS [address] [place] [address] BLUE [employer]OSS MR MR [place] [id number] 2015-P resen t [address] [place] [address] [employer] [place] [place] BLUE HB ONLY [id number] 2017-Prese nt [address] [address] [place] [address] BLUE [place]OSS MR [place] BLUE MR PB ONLY [id number] 2017-Prese nt [address] [address] [place] [address] Advance Directives * Full Code (Latest Code Status on File) Date Activated Date Inactivated Comments 05/06/2018 10:04 AM 05/06/2018 3:27 PM Care Teams Public Works Commissioner Relationship Specialty Start Date End Date Mau Chirinos MBBS [address] [place] [address] [place] [address] PCP - General Internal Medicine 05/01/18
--- OUTSIDE RECORDS SUMMARY | 2023-09-26 12:33 | XMS_ITS | Referral Summary ---
Author Name Unknown Organization [facility] Address [address] [place] [address] Care Team Providers Care Fuse Cutter Name Role Phone Mau Chirinos Primary Care Provider [phone] Nathan Michele MD Unavailable [phone] Allergies Active Allergy Reactions Criticality Noted Date [...] (PROBIOTIC PO) Active VITAMIN D PO Active Cailiyy-Ybqocldyp-Ioif 333-133-5 MG TABS per tablet Take 1 [...] Comments Blood Pressure 120/80 07/12/2022 10:05 AM STAFF CERTIFIED NURSE MIDWIFE Pulse 90 07/12/2022 10:05 AM STAFF CERTIFIED NURSE MIDWIFE Temperature 36.7 ??C (98 ??F) 02/23/2013 12:53 PM CDT Respiratory Rate 16 02/23/2013 12:45 PM CDT Oxygen Saturation 93% 02/23/2013 12:53 PM CDT Inhaled Oxygen Concentration - - Weight 68 kg (150 lb) 07/12/2022 10:05 AM STAFF CERTIFIED NURSE MIDWIFE Pt reported Height 157.5 cm (5' 2) 07/12/2022 10:05 AM STAFF CERTIFIED NURSE MIDWIFE Pt reported Body Mass Index 27.44 07/12/2022 10:05 AM STAFF CERTIFIED NURSE MIDWIFE Plan of Treatment Not on file Medical Devices Implanted Type Area Color Maker Device Identifier Shelf Expiration Date Model / Serial / Lot Mesh Ultrapro Hernia Oval [id number] Uhsov Implanted:Qty: 1 on 02/23/2013 by Nathan Michele MD at [facility] Left: Groin 10/23/2013 [employer] / / [id number] Care Teams Fuse Cutter Relationship Specialty Start Date End Date Phyo, Phunt [facility] [address] [facility] [place] [address] PCP - General Internal Medicine 02/02/13 Nathan Michele MD [address] [facility] [address] [id number] [place] [address] Assigned Surgical Provider 07/21/22
--- NOTE | 2023-09-26 13:00 | XR_ITS ---
Patient: ELFEGO STEPHENS Facility:?[facility] Patient ID:?[id number] Site Patient ID:?[id number]. Site :?1950 Study:?DEXA-Bone Density -09/26/2023 1:33:53 PM Ordering Physician:ANGEL Final Report: DXA BONE MINERAL DENSITY STUDY Reason for exam: Osteopenia. Current height (in): 62. Weight (lb): 157. Menopause age: 41. Ethnicity: White. 1. Have you had a previous hip or vertebral fracture? No. 2. Have you had any fractures during your adult life which did not result from significant trauma (e.g., auto accident)? No. 3. Did either of your parents have a hip fracture? No. 4. Do you smoke? No. 5. Have you ever taken Glucocorticoids? No. 6. Do you have rheumatoid arthritis? No. 7. 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 Yes. 8. Do you drink 3 or more alcoholic drinks per day? No. 9. Are you being treated for osteoporosis? No. 10. Have you ever taken any of the following medications: Actonel, Evista, Fosamax, Miacalcin, Reclast, Boniva, Forteo, HRT (i.e. estrogen/hormone therapy), Protelos, Prolia, Vitamin D, Calcium, other ? please specify. ANSWER: Yes, Fosamax, Vitamin D, Boniva, Calcium. 11. Do you have any of the following medical conditions: Anorexia or bulimia, asthma or emphysema, end stage renal disease, hyperparathyroidism, any seizure disorders, cancer, inflammatory bowel diseases, hysterectomy, other ? please specify. ANSWER: Yes, hysterectomy. 12. What was your maximum height (inches)? 62. 13. Do you perform weight bearing exercise regularly? No. 14. Do you regularly consume dairy products? No. 15. Do you drink caffeinated beverages? Yes. 16. At what age did your period start? 12. 17. Are you premenopausal? No. 18. How many full term pregnancies have you had? 2. 19. Have you ever missed your period for more than 6 months in a row (not including or menopause)? No. TECHNIQUE: Bone mineral density study was performed using the [employer]. FINDINGS: The results of the study expressed as bone mineral density (BMD) are as follows: Lumbar spine L1 to L4: BMD: 0.817 g/cm2. T-score: -2.1. Z-score: 0.2. Neck Left: BMD: 0.647 g/cm2. T-score: -1.8. Z-score: 0.2. Right: BMD: 0.669 g/cm2. T-score: -1.6. Z-score: 0.4. Total Left: BMD: 0.818 g/cm2. T-score: -1.0. Z-score: 0.7. Right: BMD: 0.823 g/cm2. T-score: -1.0. Z-score: 0.7. IMPRESSION: Osteopenia. FRAX 10-year Fracture Risk Major Osteoporotic Fracture: 12 percent Hip Fracture: 2.5 percent Reported Risk Factors: [place] () Neck BMD=0.647, BMI=28.7, secondary osteoporosis. Vic Melvin M.D. Diagnostic Radiologist [email or web address] DSM/sp D& Transcribed: 5:24 p.m. SP/Dictated by: Vic Melvin MD @ 09/26/2023 3:03:00 PM Signed by:?Vic Melvin MD @09/27/2023 5:26:52 AM (Electronic Signature)
== END 2023-09-26 12:31 | disposition home or self-care (01) ==
LOC: RAD 12:31
PROVIDERS: PCP Family Medicine; Visit Provider Family Medicine
DX: M85.80 Other specified disorders of bone density and structure, unspecified site (principal); M85.89 Other specified disorders of bone density and structure, multiple sites; Z78.0 Asymptomatic menopausal state
CPT/HCPCS: 77080

== ENCOUNTER 2023-11-05 17:11 | Emergency (ER) | payer MEDICARE, BC, SELFPAY ==
[2023-11-05 17:36] VITALS: BP 160/83; PULSE 72; RESP 16; TEMP 37.1; O2SAT 98; BMI 29.7
--- NOTE | 2023-11-05 18:07 | ED.GENADULT ---
HPI - General Adult General Chief complaint: Back Injury/Pain Stated complaint: R side lower back/leg pain Time Seen by Provider: 11/05/23 17:21 Source: patient Mode of arrival: ambulatory Limitations: no limitations History of Present Illness HPI narrative: 72-year-old female coming in today complaining of low back pain. Patient states she has been having low back pain on all for the last 2 years. Recently in the last several days it has gotten a bit worse. She states that she has had physical therapy and pain medications in the past. She denies ever having any injections or seeing a specialist. She states that the pain is so bad now that she can not do her exercises that she has been taught to do at home. Pain is located in lower back and radiates down the right leg all the way down to the knee. She denies difficulty lifting up that leg. She denies any saddle anesthesia. She denies fevers or chills. No nausea vomiting. No weight loss. No changes in her appetite. Sitting down seems to make the pain worse. Pain is not modified with bending over at the waist. Related Data Home Medications ?Medication ?Instructions ?Recorded ?Confirmed aspirin 81 mg chewable tablet 81 mg PO QDAY 12/19/21 11/05/23 Lactobacillus acidophilus 1 10 mg PO QDAY 04/09/22 07/23/23 billion cell capsule iamobsz-rqtezkpuu-jdxi 333 mg-133 1 tab PO QDAY 04/09/22 11/05/23 mg-5 mg tablet ergocalciferol (vitamin D2) 10 mcg 1,000 unit PO DAILY 04/09/22 11/05/23 (400 unit) tablet albuterol sulfate 90 mcg/actuation 2 inh inhalation Q4H PRN 09/25/22 11/05/23 breath activated powder inhaler hydrocortisone 2.5 % topical topical 07/22/23 07/22/23 ointment Previous Rx's ?Medication ?Instructions ?Recorded cyclobenzaprine 5 mg tablet 5 mg PO QHS #30 tabs 12/03/22 naproxen 500 mg tablet 500 mg PO BID #60 tabs 12/03/22 amlodipine 5 mg tablet 5 mg PO QDAY #90 tabs 01/30/23 bupropion HCl 300 mg 24 hr tablet, 300 mg PO QAM #90 tabs 07/23/23 extended release carvedilol 6.25 mg tablet 6.25 mg PO BID #180 tabs 07/23/23 famotidine 40 mg tablet 40 mg PO QHS #90 tabs 07/23/23 pantoprazole 40 mg tablet,delayed 40 mg PO QDAY #90 tabs 07/23/23 release (Protonix) pravastatin 40 mg tablet 40 mg PO QHS #90 tabs 07/23/23 peg 3350-electrolytes 236 240 ml PO Q10M #4,000 mL 07/24/23 gram-22.74 gram-6.74 gram-5.86 gram solution (Golytely) Allergies Allergy/AdvReac Type Severity Reaction Status Date / Time citalopram Allergy Severe memory loss Verified 07/23/23 08:56 duloxetine Allergy Severe paranoid Verified 07/23/23 08:56 Fish Containing Products Allergy Severe SOB Verified 07/23/23 08:56 gabapentin Allergy Severe memory loss Verified 07/23/23 08:56 amitriptyline Allergy Intermediate feels drunk Verified 07/23/23 08:56 desipramine Allergy Intermediate Depression Verified 07/23/23 08:56 alprazolam Allergy Mild tired Verified 07/23/23 08:56 milnacipran Allergy Mild can't sleep Verified 07/23/23 08:56 morphine Allergy Mild Nausea Verified 07/23/23 08:56 Sulfa (Sulfonamide Allergy Unknown Hives Verified 07/23/23 08:56 Antibiotics) risodronate Allergy Mild jaw pain Uncoded 07/23/23 08:56 Review of Systems Status of ROS: Reports: 10 or more systems reviewed and unremarkable except as noted in History and below PFSH COUNT INCLUDES [facility] Medical History Primary hypertension ?I10 - Essential (primary) hypertension (ICD-10) Mixed hyperlipidemia ?E78.2 - Mixed hyperlipidemia (ICD-10) Osteopenia ?M85.80 - Other specified disorders of bone density and structure, unspecified site (ICD-10) Insomnia ?G47.00 - Insomnia, unspecified (ICD-10) History of cystocele (2006) ?Z87.448 - Personal history of other diseases of urinary system (ICD-10) History of adenomatous polyp of colon (04/2018) ?Z86.010 - Personal history of colonic polyps (ICD-10) Gastroesophageal reflux disease ?K21.9 - Gastro-esophageal reflux disease without esophagitis (ICD-10) Fibromyalgia ?M79.7 - Fibromyalgia (ICD-10) Anxiety and depression ?F41.9 - Anxiety disorder, unspecified (ICD-10) ?F32.A - Depression, unspecified (ICD-10) Allergic rhinitis ?J30.9 - Allergic rhinitis, unspecified (ICD-10) Surgical History Hx of bilateral cataract extraction ?Z98.41 - Cataract extraction status, right eye (ICD-10) ?Z98.42 - Cataract extraction status, left eye (ICD-10) History of total abdominal hysterectomy and bilateral salpingo-oophorectomy (1991) ?Z90.710 - Acquired absence of both cervix and uterus (ICD-10) ?Z90.722 - Acquired absence of ovaries, bilateral (ICD-10) ?Z90.79 - Acquired absence of other genital organ(s) (ICD-10) History of laparoscopic appendectomy (10/25/07) ?Z90.49 - Acquired absence of other specified parts of digestive tract (ICD-10) History of inguinal hernia repair (02/22/10) ?Z98.890 - Other specified postprocedural states (ICD-10) ?Z87.19 - Personal history of other diseases of the digestive system (ICD-10) Family History Mother Colon cancer Diabetes Stroke Father Coronary artery disease, Onset Age: 65 Social History Narrative: , 2 kids, non-smoker, social EtOH, retired Smoking Status: Never smoker How often do you have a drink containing alcohol: never How often do you have six or more drinks on one occasion: Never AUDIT-C Alcohol total score: 0 Non-prescribed substance use: denies use Little interest or pleasure in doing things: not at all Feeling down, depressed, or hopeless: not at all Exam Narrative: Exam Narrative: Well-nourished well-developed patient in no acute distress. Alert and oriented. Answers questions appropriately. Mood and affect are appropriate. Thoughts are goal oriented and rational. No tangential or magical thinking noted. Patient speaks in full sentences without needing to catch her breath. HEENT: Normocephalic atraumatic. Pupils are equally round reactive to light. Extraocular muscles are intact. Conjunctivae are moist without any icterus noted. Moist mucous membranes. Back: Normal appearance. She has no tenderness to palpation of the thoracic or lumbar spine. She has discomfort of the paraspinal musculature on the right. She has some tenderness with the palpation of the glute on that side. There is no weakness noted. Her gait is normal. She has no pain with flexion or extension at the hip. There is no footdrop. Reflexes are 2+ and symmetric at the knees. Const: Vital Signs, click to edit/add: Vital Signs - 24 hr 11/05/23 17:36 Temperature 98.8 F Pulse Rate [Pulse Oximeter] 72 Respiratory Rate 16 Blood Pressure [Le ft Upper Arm] 160/83 H Pulse Oximetry 98 Oxygen Delivery Me thod Room Air Course Vital Signs Vital signs: Initial Vital Signs Temperature 98.8 F 11/05/23 17:36 Temperature Source Temporal Artery Scan 11/05/23 17:36 Pulse Rate 72 11/05/23 17:36 Respiratory Rate 16 11/05/23 17:36 Blood Pressure 160/83 H 11/05/23 17:36 Blood Pressure Mean 108 H 11/05/23 17:36 Blood Pressure Position Standing 11/05/23 17:36 Pulse Oximetry 98 11/05/23 17:36 Oxygen Delivery Method Room Air 11/05/23 17:36 Vital Signs Temperature 98.8 F 11/05/23 17:36 Pulse Rate 72 11/05/23 17:36 Respiratory Rate 16 11/05/23 17:36 Blood Pressure 160/83 H 11/05/23 17:36 Pulse Oximetry 98 11/05/23 17:36 Oxygen Delivery Method Room Air 11/05/23 17:36 Temperature 98.8 F 11/05/23 17:36 Pulse Rate 72 11/05/23 17:36 Respiratory Rate 16 11/05/23 17:36 Blood Pressure 160/83 H 11/05/23 17:36 Pulse Oximetry 98 11/05/23 17:36 Oxygen Delivery Method Room Air 11/05/23 17:36 Medical Decision Making MDM Narrative Medical decision making narrative: 72-year-old female with low back pain radiculopathy. Will treat with a prednisone taper, oxycodone as needed. Discharge Plan Discharge Clinical Impression: Lumbar radiculopathy Patient Disposition: Home, Self-Care Condition: Stable Additional Instructions: Tylenol 1000 mg 3 times daily. Oxycodone if needed for uncontrolled pain. Be aware that this medication can cause constipation, dizziness, sleepiness, confusion, use only as needed. Prednisone as prescribed. Please follow-up with your primary provider in the next week. Return at any time for worsening such as fevers, weakness, numbness, bowel or bladder changes. Take prednisone as follows: 3 tablets daily for 3 days then 2 tablets daily for 3 days then 1 tablet daily for 3 days. Oxycodone 8 tablets and prednisone sent to [facility]. Prescriptions: No Action hydrocortisone 2.5 % ointment topical pantoprazole [Protonix] 40 mg tablet,delayed release (DR/EC) 40 mg PO QDAY Qty: 90 3RF carvedilol 6.25 mg tablet 6.25 mg PO BID Qty: 180 3RF Rx Instructions: must administer with a meal/food bupropion HCl 300 mg tablet extended release 24 hr 300 mg PO QAM Qty: 90 3RF famotidine 40 mg tablet 40 mg PO QHS Qty: 90 3RF pravastatin 40 mg tablet 40 mg PO QHS Qty: 90 3RF ergocalciferol (vitamin D2) 10 mcg (400 unit) tablet 1,000 unit PO DAILY Lactobacillus acidophilus 1 billion cell capsule 10 mg PO QDAY kehecmq-tnmiemmir-husl 333-133-5 mg tablet 1 tab PO QDAY albuterol sulfate 90 mcg/actuation aerosol powdr breath activated 2 inh inhalation Q4H PRN naproxen 500 mg tablet 500 mg PO BID Qty: 60 2RF cyclobenzaprine 5 mg tablet 5 mg PO QHS Qty: 30 1RF aspirin 81 mg tablet,chewable 81 mg PO QDAY amlodipine 5 mg tablet 5 mg PO QDAY Qty: 90 3RF peg 3350-electrolytes [Golytely] 236-22.74-6.74 -5.86 gram recon soln 240 ml PO Q10M Qty: 4000 0RF Rx Instructions: until fecal effluent is clear Follow Up/Referrals: Vic Verdin MD [Primary Care Provider] - Stand Alone Forms: [facility] Info Instructions
--- OUTSIDE RECORDS SUMMARY | 2023-11-05 18:15 | XMS_ITS | Clinical Summary ---
Author Organization [employer] [facility] Address [place], [place] [address] Care Team Providers Care Director Medical Surgical Name Role Phone Mau Chirinos NIMABS Primary Care Provider [phone] Allergies Active Allergy Reactions Criticality Noted Date Comments Alprazolam Other - Describe In Comment Field 05/01/2018 Sedated feeling Amitriptyline Other - Describe In Comment Field 05/01/2018 feels drunk Citalopram Other - Describe In Comment Field 05/01/2018 Loss of memory Desipramine Other - Describe In Comment Field 05/01/2018 [place] depressed Duloxetine Other - Describe In Comment [...] mg by mouth once daily. 10/04/2017 Active PYFAGEC-HATLAEDES-STPO ORALIndications:supplem ent Take 1 tablet by mouth [...] Department Care Team Description 08/08/2023 Lab Requisition [facility] [phone] Jennifer Barroso MD from Last 3 Months [...] Comments Blood Pressure 140/82 06/01/2019 10:09 AM RIGGER UP Pulse 88 06/01/2019 10:09 AM RIGGER UP Temperature 36.3 ??C (97.4 ??F) 05/06/2018 11:[address] Respiratory Rate 18 06/01/2019 10:09 AM RIGGER UP Oxygen Saturation 99% 05/06/2018 12:15 PM RIGGER UP Inhaled Oxygen Concentration - - Weight 67 kg (147 lb 12.8 oz) 05/06/2018 10:31 A M RIGGER UP Height 154.9 cm (5' 1) 05/06/2018 10:31 AM RIGGER UP Body Mass Index 27.93 05/06/2018 10:31 AM RIGGER UP Plan of Treatment Health Maintenance Due Date [...] 1 - PCV) 015 COVID-19 vaccine series ( - season) 3 Influenza for age 65+ 01/26/2024 Colonoscopy through age 75 05/06/2028 05/06/2018 Procedures Procedure Name Priority Date/Time Associated Diagnosis Comments LAB TRACKING EVENT Routine 08/08/2023 10 :50 AM CDT PATH TISSUE EXAM Routine 08/08/2023 10:5 0 AM CDT COLONOSCOPY 05/06/2018 10:57 AM RIGGER UP from Last 3 Months or Most Recently Relevant to Health Maintenance Results * LAB TRACKING EVENT (08/08/2023 10:50 AM CDT) Other (Other) Client Collect / Unknown 08/08/2023 10:50 AM CDT 08/08/2023 8:47 PM CDT Jennifer Barroso MD LAB BILL ONLY [facility] [address] [place] [address], * PATH TISSUE EXAM (08/08/2023 10:50 AM CDT) Case Report Pathology Report ?Case: [id number] ? Authorizing Provider: ??Jennifer Barroso MD ?Collected: ? 08/08/2023 1050 ? Ordering Location: ? [facility] ?Received: ?08/08/20232114 ? Pathologist: ? Vivien Jin MD ? Specimens: ?? A) - Transverse Colon Polyp ? B) - Ascending Colon Polyp ? C) - Splenic Flexure Biopsy ? 08/09/2023 11:13 AM CDT [facility] Final Diagnosis A) [...] c. Retrieval: Complete 08/09/2023 11:13 AM CDT [facility] Clinical Information Surveillance colonoscopy 08/09/2023 11:13 AM CDT [facility] Gross Description A) Received [...] 08/08/2023 9:21 PM 08/09/2023 11:[address] [facility] Microscopic Description The final diagnosis is based on microscopic examination of appropriate sections of all specimens. 08/09/2023 11:13 AM CDT [facility] Additional Information Interpreted at [facility] - [address] [facility] [address], [place] [address] 08/09/2023 11:13 AM CDT [facility] Other (Transverse Colon Polyp) 08/08/2023 10:50 AM CDT 08/08/2023 9:15 PM CDT Specimen (specimen) (Ascending Colon Polyp) 08/08/2023 10:50 AM CDT 08/08/2023 9:15 PM CDT Specimen (specimen) (Splenic Flexure Biopsy) 08/08/2023 10:50 AM CDT 08/08/2023 9:15 PM CDT Jennifer Barroso MD [facility] [address] [place] [address], * COLONOSCOPY (05/06/2018 10:57 AM RIGGER UP) 05/06/2018 10:5 7 AM RIGGER UP Narrative Transcriptions Steve Walker MD - 05/06/2018 11:29 AM CST Patient Name: Zo Yang Procedure Date: 05/06/2018 Gender: Female Date of : 1950 Admit Type: Ambulatory Procedure: Colonoscopy Proceduralist: Valentin Walker [facility] Referring MD: Mau Chirinos Indications/Pre-Op Diagnosis: Surveillance: [...] or Most Recently Relevant to Health Maintenance Advance Directives * Full Code (Latest Code Status on File) Date Activated Date Inactivated Comments 05/06/2018 10:04 AM 05/06/2018 3:27 PM Care Teams Director Medical Surgical Relationship Specialty Start Date End Date Mau Chirinos MBBS [address] [place] [address] [place] [id number] PCP - General Internal Medicine 05/01/18
--- OUTSIDE RECORDS SUMMARY | 2023-11-05 18:15 | XMS_ITS | Clinical Summary ---
Author Organization [place] Address [address] [place] [address] Care Team Providers Care Supervisor Cytogenetic Laboratory Name Role Phone Mau Chirinos Primary Care Provider [phone] Nathan Michele MD Unavailable [phone] Allergies Active Allergy Reactions Criticality Noted Date [...] (PROBIOTIC PO) Active VITAMIN D PO Active Ezqfbps-Nzzobstkg-Zrgm 333-133-5 MG TABS per tablet Take 1 [...] Comments Blood Pressure 120/80 07/12/2022 10:05 AM SEPTIC TANK SETTER Pulse 90 07/12/2022 10:05 AM SEPTIC TANK SETTER Temperature 36.7 ??C (98 ??F) 02/23/2013 12:53 PM CDT Respiratory Rate 16 02/23/2013 12:45 PM CDT Oxygen Saturation 93% 02/23/2013 12:53 PM CDT Inhaled Oxygen Concentration - - Weight 68 kg (150 lb) 07/12/2022 10:05 AM SEPTIC TANK SETTER Pt reported Height 157.5 cm (5' 2) 07/12/2022 10:05 AM SEPTIC TANK SETTER Pt reported Body Mass Index 27.44 07/12/2022 10:05 AM SEPTIC TANK SETTER Plan of Treatment Health Maintenance Due Date [...] this topic Medical Devices Implanted Type Area Web Mobile Designer Device Identifier Shelf Expiration Date Model / Serial / Lot Mesh Ultrapro Hernia Oval [id number] Uhsov Implanted:Qty: 1 on 02/23/2013 by Nathan Michele MD at [facility] Left: Groin 10/23/2013 [employer] / / [id number] Care Teams Supervisor Cytogenetic Laboratory Relationship Specialty Start Date End Date Phyo, Phunt [facility] [address] [facility] [place] [id number] PCP - General Internal Medicine 02/02/13 Nathan Michele MD [address] [facility] [place] [address] Assigned Surgical Provider 07/21/22
--- OUTSIDE RECORDS SUMMARY | 2023-11-05 18:15 | XMS_ITS | Referral Summary ---
Author Organization [place] Address [address] [place] [address] Care Team Providers Care Senior Marketing Coordinator Name Role Phone Mau Chirinos Primary Care Provider [phone] Nathan Michele MD Unavailable Allergies Active Allergy Reactions Criticality Noted Date [...] (PROBIOTIC PO) Active VITAMIN D PO Active Prlgbmo-Fwalkqbdb-Ryro 333-133-5 MG TABS per tablet Take 1 [...] Comments Blood Pressure 120/80 07/12/2022 10:05 AM DOG RACES MANAGER Pulse 90 07/12/2022 10:05 AM DOG RACES MANAGER Temperature 36.7 ??C (98 ??F) 02/23/2013 12:53 PM CDT Respiratory Rate 16 02/23/2013 12:45 PM CDT Oxygen Saturation 93% 02/23/2013 12:53 PM CDT Inhaled Oxygen Concentration - - Weight 68 kg (150 lb) 07/12/2022 10:05 AM DOG RACES MANAGER Pt reported Height 157.5 cm (5' 2) 07/12/2022 10:05 AM DOG RACES MANAGER Pt reported Body Mass Index 27.44 07/12/2022 10:05 AM DOG RACES MANAGER Plan of Treatment Not on file Medical Devices Implanted Type Area Ibm Bpm Architect Device Identifier Shelf Expiration Date Model / Serial / Lot Mesh Ultrapro Hernia Oval [id number] Uhsov Implanted:Qty: 1 on 02/23/2013 by Nathan Michele MD at [facility] Left: Groin 10/23/2013 [employer] / / [id number] Care Teams Senior Marketing Coordinator Relationship Specialty Start Date End Date Phyo, Phunt [facility] [address] [facility] [place] [address] PCP - General Internal Medicine 02/02/13 Nathan Michele MD [address] [facility] [place] [employer] [id number] [place] [address] Assigned Surgical Provider 07/21/22
== END 2023-11-05 18:26 | disposition home or self-care (01) ==
PROVIDERS: Emergency Provider Family Medicine; PCP Family Medicine
DX: M54.16 Radiculopathy, lumbar region (principal)
CPT/HCPCS: 99283; 99284

== ENCOUNTER 2024-02-21 07:05 | Outpatient (CLI) | payer MEDICARE, BC, SELFPAY ==
--- OUTSIDE RECORDS SUMMARY | 2024-02-21 07:07 | XMS_ITS | Referral Summary ---
Author Organization [place] Address [address] [place] [address] Care Team Providers Care Manager Statistics Name Role Phone Mau Chirinos Primary Care Provider [phone] Allergies Active Allergy Reactions Criticality Noted Date [...] (PROBIOTIC PO) Active VITAMIN D PO Active Itppjxq-Iqsaiotpe-Iher 333-133-5 MG TABS per tablet Take 1 [...] Comments Blood Pressure 120/80 07/12/2022 10:05 AM SCOURING TRAIN OPERATOR Pulse 90 07/12/2022 10:05 AM SCOURING TRAIN OPERATOR Temperature 36.7 ??C (98 ??F) 02/23/2013 12:53 PM CDT Respiratory Rate 16 02/23/2013 12:45 PM CDT Oxygen Saturation 93% 02/23/2013 12:53 PM CDT Inhaled Oxygen Concentration - - Weight 68 kg (150 lb) 07/12/2022 10:05 AM SCOURING TRAIN OPERATOR Pt reported Height 157.5 cm (5' 2) 07/12/2022 10:05 AM SCOURING TRAIN OPERATOR Pt reported Body Mass Index 27.44 07/12/2022 10:05 AM SCOURING TRAIN OPERATOR Plan of Treatment Not on file Medical Devices Implanted Type Area Relationship Executive Device Identifier Shelf Expiration Date Model / Serial / Lot Mesh Ultrapro Hernia Oval [id number] Uhsov Implanted:Qty: 1 on 02/23/2013 by Nathan Michele MD at [facility] Left: Groin 10/23/2013 [facility] / / [id number] Care Teams Manager Statistics Relationship Specialty Start Date End Date Phyo, Phunt [address] [address] PCP - General Internal Medicine 02/02/13
--- OUTSIDE RECORDS SUMMARY | 2024-02-21 07:07 | XMS_ITS | Clinical Summary ---
Author Organization [facility] Address [place], [place] [address] Care Team Providers Care Patient Care Associate Name Role Phone Mau Chirinos MB Primary Care Provider [phone] Allergies Active Allergy Reactions Criticality Noted Date Comments Alprazolam Other - Describe In Comment Field 05/01/2018 Sedated feeling Amitriptyline Other - Describe In Comment Field 05/01/2018 feels drunk Citalopram Other - Describe In Comment Field 05/01/2018 Loss of memory Desipramine Other - Describe In Comment Field 05/01/2018 [place] depressed Duloxetine Other - Describe In Comment [...] mg by mouth once daily. 10/04/2017 Active YSXDBTQ-PAMKZRKJJ-NZCV ORALIndications:supplem ent Take 1 tablet by mouth [...] Comments Blood Pressure 140/82 06/01/2019 10:09 AM PRE ALGEBRA TEACHER Pulse 88 06/01/2019 10:09 AM PRE ALGEBRA TEACHER Temperature 36.3 ??C (97.4 ??F) 05/06/2018 11:[address] Respiratory Rate 18 06/01/2019 10:09 AM PRE ALGEBRA TEACHER Oxygen Saturation 99% 05/06/2018 12:15 PM PRE ALGEBRA TEACHER Inhaled Oxygen Concentration - - Weight 67 kg (147 lb 12.8 oz) 05/06/2018 10:31 A M PRE ALGEBRA TEACHER Height 154.9 cm (5' 1) 05/06/2018 10:31 AM PRE ALGEBRA TEACHER Body Mass Index 27.93 05/06/2018 10:31 AM PRE ALGEBRA TEACHER Plan of Treatment Health Maintenance Due Date [...] - PCV) 015 COVID-19 vaccine series ( season) 4 Influenza for age 65+ 01/26/2024 Colonoscopy through age 75 05/06/2028 05/06/2018 Procedures Procedure Name Priority Date/Time Associated Diagnosis Comments COLONOSCOPY 05/06/2018 10:57 AM PRE ALGEBRA TEACHER from Last 3 Months or Most Recently Relevant to Health Maintenance Results * COLONOSCOPY (05/06/2018 10:57 AM PRE ALGEBRA TEACHER) 05/06/2018 10:5 7 AM PRE ALGEBRA TEACHER Narrative Transcriptions FromSteve guadarrama MD - 05/06/2018 11:29 AM CST Patient Name: Zo Yang Procedure Date: 05/06/2018 Gender: Female Date of : 1950 Admit Type: Ambulatory Procedure: Colonoscopy Proceduralist: Valentin Walker [facility] Referring MD: Mau Chirinos Indications/Pre-Op Diagnosis: Surveillance: [...] 10:04 AM 05/06/2018 3:27 PM Care Teams Patient Care Associate Relationship Specialty Start Date End Date Mau Chirinos MBBS [address] [place] [address] [place] [address] PCP - General Internal Medicine 05/01/18
--- OUTSIDE RECORDS SUMMARY | 2024-02-21 07:07 | XMS_ITS | Clinical Summary ---
Author Organization [place] Address [address] [facility] [place] [address] Care Team Providers Care Associate Account Manager Name Role Phone Mau Chirinos Primary Care Provider [phone] Allergies Active Allergy Reactions Criticality Noted Date [...] (PROBIOTIC PO) Active VITAMIN D PO Active Xdcvltt-Aoimeupof-Gxpk 333-133-5 MG TABS per tablet Take 1 [...] Comments Blood Pressure 120/80 07/12/2022 10:05 AM COMMUNITY MARKETING COORDINATOR Pulse 90 07/12/2022 10:05 AM COMMUNITY MARKETING COORDINATOR Temperature 36.7 ??C (98 ??F) 02/23/2013 12:53 PM CDT Respiratory Rate 16 02/23/2013 12:45 PM CDT Oxygen Saturation 93% 02/23/2013 12:53 PM CDT Inhaled Oxygen Concentration - - Weight 68 kg (150 lb) 07/12/2022 10:05 AM COMMUNITY MARKETING COORDINATOR Pt reported Height 157.5 cm (5' 2) 07/12/2022 10:05 AM COMMUNITY MARKETING COORDINATOR Pt reported Body Mass Index 27.44 07/12/2022 10:05 AM COMMUNITY MARKETING COORDINATOR Plan of Treatment Health Maintenance Due Date Last Done Comments ADVANCE CARE PLANNING 1950 ANNUAL REVIEW OF HM ORDERS [address] CT COLONOGRAPHY 1950 DEXA 1950 FIT 1950 FLEX SIG 1950 GLUCOSE 1950 LIPID 1950 MAMMO SCREENING 1950 sDNA (Cologuard) 1950 COLONOSCOPY 12/28/1959 COLORECTAL CANCER SCREENING 12/28/1959 HEPATITIS C SCREENING 12/28/1967 ZOSTER IMMUNIZATION (1 of 2) 12/28/1999 FALL RISK ASSESSMENT 2014 MEDICARE ANNUAL WELLNESS VISIT 2014 DTAP/TDAP/TD IMMUNIZATION (1 - Tdap) 09/29/2015 09/28/2015, 11/20/2005 PHQ-2 (once per calendar year) 2023 COVID-19 Vaccine ( - season) 2024 INFLUENZA VACCINE (#1) 2024 5, 03/04/2014, 04/01/2012, Additional history exists RSV VACCINE (1 - 1-dose 75+ series) 2024 Pneumococcal Vaccine: 65+ Years Completed 05/23/2018, 03/17/2015 HPV IMMUNIZATION Aged Out No longer e ligible based on patient's age to complete this topic MENINGITIS IMMUNIZATION Aged Out No l onger eligible based on patient's age to complete this topic RSV MONOCLONAL ANTIBODY Aged Out No l onger eligible based on patient's age to complete this topic Medical Devices Implanted Type Area Clearance Representative Device Identifier Shelf Expiration Date Model / Serial / Lot Mesh Ultrapro Hernia Oval [id number] Uhsov Implanted:Qty: 1 on 02/23/2013 by Nathan Michele MD at [facility] Left: Nacho 10/23/2013 SOV / / [id number] Care Teams Associate Account Manager Relationship Specialty Start Date End Date Kikimatt Mau [address] [address] PCP - General Internal Medicine 02/02/13
--- NOTE | 2024-02-21 07:15 | CRLHL7_ITS ---
For Patients: As a result of the 21st Century Cures Act, medical imaging exams and procedure reports are released immediately into your electronic medical record. You may view this report before your referring provider. If you have questions, please contact your health care provider. Indication: Lumbar radiculopathy. Technique: Noncontrast sagittal and axial T1, T2, and sagittal STIR sequences are provided. Comparison: Lumbar radiographs 09/22/2017 Findings: There are 5 lumbar type vertebral bodies. Benign hemangioma in the L3 superior endplate. Degenerative 6 mm grade 1 anterolisthesis at L4-5. The conus medullaris is normal in signal and location. Disc desiccation at L1-2 through L4-5. Right upper pole renal cyst. T12-L1: No significant spinal canal stenosis or neural foraminal narrowing. L1-2: No significant spinal canal stenosis or neural foraminal narrowing. L2-3: Disc desiccation. Mild annular bulge. Mild facet arthrosis. No significant spinal canal stenosis or neural foraminal narrowing. L3-4: Disc desiccation. Mild disc bulge. Moderate left and mild right facet arthrosis. No significant spinal canal stenosis or neural foraminal narrowing. L4-5: Grade 1 anterolisthesis. Uncovering of the disc. Advanced facet arthrosis with ligamentum flavum buckling. Mild facet joint effusions. There is a 9 by 7 by 1.7 cm T2 hyperintense structure in the dorsal epidural space that likely represents a synovial cyst (series 4, image 9). Moderate subarticular recess stenosis. No neural foramen narrowing bilaterally. L5-S1: Advanced right and moderate left facet arthrosis and left ligamentum flavum buckling. No significant spinal canal stenosis. No neural foramen narrowing. Impression: 1. Multilevel lumbar spondylosis. 2. At L4-5 there is moderate bilateral subarticular recess stenosis due to disc bulge anterolisthesis, advanced facet arthrosis and ligamentum flavum buckling and dorsal epidural T2 hyperintense structure that likely represents a synovial cyst. This results in moderate subarticular recess stenosis and mild central canal stenosis. 3. At L5-S1, advanced right and moderate left facet arthrosis and left ligamentum flavum buckling without significant spinal canal stenosis or neural foramen narrowing. 4. Milder degenerative changes at remaining levels. 5. Marked thinning of marrow signal in the L5-S1 pars interarticularis. Cannot exclude nondisplaced pars fractures. Dictated by Vic Martinez MD @ 02/21/2024 10:46:36 PM (Electronically Signed)
== END 2024-02-21 07:06 | disposition home or self-care (01) ==
LOC: MRI 07:05
PROVIDERS: PCP Family Medicine; Visit Provider Family Medicine
DX: M54.16 Radiculopathy, lumbar region (principal); M47.896 Other spondylosis, lumbar region; M51.26 Other intervertebral disc displacement, lumbar region
CPT/HCPCS: 72148

== ENCOUNTER 2024-04-17 10:41 | Outpatient (CLI) | payer MEDICARE, BC, SELFPAY ==
--- OUTSIDE RECORDS SUMMARY | 2024-04-17 10:43 | XMS_ITS | Referral Summary ---
Author Organization [facility] Address [address] [place] [id number] Care Team Providers Care Metal Rolling Mill Operator Name Role Phone Mau Chirinos MD Primary Care Provider [phone] Allergies Active Allergy Reactions Criticality Noted Date Comments Duloxetine Hcl 02/20/2013 Sulfa Antibiotics Shortness Of Breath,Rash High 01/25 Medications amLODIPine (NORVASC) 5 MG tablet Take 5 [...] mouth daily Active Probiotic Product (PROBIOTIC PO) Activ e VITAMIN D PO Active Calcium-Magnesiu m-Zinc 333-133-5 MG TABS per tablet Take 1 [...] School Help Needed Not on file 02/15 Comments No Sex and Gender Information Value Date Recorded Sex Assigned at Not on file Legal Sex Female 8:42 AM CDT Gender Identity Not on file Sexual Orientation Not on file Last Filed Vital Signs Vital Sign Reading Time Taken Comments Blood Pressure 120/80 07/12/2022 10:05 AM AUTOMATION CONTROL TECHNICIAN Pulse 90 07/12/2022 10:05 AM AUTOMATION CONTROL TECHNICIAN Temperature 36.7 C (98 F) 02/23/2013 12:53 PM CDT Respiratory Rate 16 02/23/2013 12:45 PM CDT Oxygen Saturation 93% 02/23/2013 12:53 PM CDT Inhaled Oxygen Concentration - - Weight 68 kg (150 lb) 07/12/2022 10:05 AM AUTOMATION CONTROL TECHNICIAN Pt reported Height 157.5 cm (5' 2) 07/12/2022 10:05 AM AUTOMATION CONTROL TECHNICIAN Pt reported Body Mass Index 27.44 07/12/2022 10:05 AM AUTOMATION CONTROL TECHNICIAN Plan of Treatment Not on file Medical Devices Implanted Type Area Reading Instructor Device Identifier Shelf Expiration Date Model / Serial / Lot Mesh Ultrapro Hernia Oval [id number] [id number] Implanted:Qty: 1 on 02/23/2013 by Nathan Michele MD at [facility] Left: Groin 10/23/2013 [facility] / / [id number] Insurance [facility] BLUE Care Teams Metal Rolling Mill Operator Relationship Specialty Start Date End Date Mau Chirinos MD [address] [address] PCP - General Internal Medicine 02/02/13
--- OUTSIDE RECORDS SUMMARY | 2024-04-17 10:43 | XMS_ITS | Clinical Summary ---
Author Organization [facility] Address [address] [place] [address] Care Team Providers Care Predatory Animal Exterminator Name Role Phone Mau Chirinos MD Primary Care Provider [phone] Allergies Active Allergy Reactions Criticality Noted Date [...] Comments Blood Pressure 120/80 07/12/2022 10:05 AM TECH ED/WOODSHOP TEACHER Pulse 90 07/12/2022 10:05 AM TECH ED/WOODSHOP TEACHER Temperature 36.7 C (98 F) 02/23/2013 12:53 PM CDT Respiratory Rate 16 02/23/2013 12:45 PM CDT Oxygen Saturation 93% 02/23/2013 12:53 PM CDT Inhaled Oxygen Concentration - - Weight 68 kg (150 lb) 07/12/2022 10:05 AM TECH ED/WOODSHOP TEACHER Pt reported Height 157.5 cm (5' 2) 07/12/2022 10:05 AM TECH ED/WOODSHOP TEACHER Pt reported Body Mass Index 27.44 07/12/2022 10:05 AM TECH ED/WOODSHOP TEACHER Plan of Treatment Health Maintenance Due [...] this topic Medical Devices Implanted Type Area Salesperson Hosiery Device Identifier Shelf Expiration Date Model / Serial / Lot Mesh Ultrapro Hernia Oval [id number] Uhsov Implanted:Qty: 1 on 02/23/2013 by Nathan Michele MD at [facility] Left: Groin 10/23/2013 [employer] / / [id number] Insurance [facility] BLUE Care Teams Predatory Animal Exterminator Relationship Specialty Start Date End Date Mau Chirinos MD [address] [address] PCP - General Internal Medicine 02/02/13
--- OUTSIDE RECORDS SUMMARY | 2024-04-17 10:43 | XMS_ITS | Clinical Summary ---
Author Organization [facility] [facility] Address [place], [place] [address] Care Team Providers Care Airplane Inspector Name Role Phone Mau Chirinos Primary Care Provider [phone] Allergies Active Allergy Reactions Criticality Noted Date Comments Alprazolam Other - Describe In Comment Field 05/01/2018 Sedated feeling Amitriptyline Other - Describe In Comment Field High 06/08/2010 feels drunk Other reaction(s): Feels drunk Citalopram Other - Describe In Comment Field 05/01/2018 Loss of memory Desipramine Other - Describe In Comment Field High 06/08/2010 [place] depressed Other reaction(s): Depression Duloxetine Other - Describe In Comment Field High 06/08/2010 paranoia Other reaction(s): Paranoid Fish Containing Products Shortness Of Breath,Dyspnea High 11/05/2005 Gabapentin Other - Describe In Comment Field High 06/08/2010 Memory loss Other reaction(s): Memory loss with high dose Milnacipran Sleep Disturbances,Insomn ia Low 06/08/2010 Other reaction(s): Can't sleep, can't think Morphine Nausea And Vomiting Low 05/01/2018 Sulfa (Sulfonamide Antibiotics) Rash,Shortness Of Breath,Dyspnea,Hive s 07/13/2015 respiratory Medications Medication Sig Dispensed Refills Start Date End Date Status alendronate (FOSAMAX) 70 mg tabletIndications:p ostmenopausal osteoporosis Take 70 mg by mouth once a week in the morning. 10/04/2017 Active buPROPion (WELLBUTRIN XL) 150 mg Extended-Release tabletIndications:a nxiety with depression Take 150 mg by mouth once daily. 10/04/2017 Active UWHXTRT-LUBZNNARZ-N INC ORALIndications:sup plement Take 1 tablet by mouth once daily. 01/26/2010 Active ERGOCALCIFEROL, VITAMIN D2, ORALIndications:vit rondon supplement Take 1,000 Int'l Units by mouth once daily. 09/28/2009 Active ibuprofen (ADVIL; MOTRIN) 200 mg tablet Take 2 tablets by mouth every 4 hours if needed for Pain or Headache. 09/11/2010 Active Lactobacillus acidophilus (PROBIOTIC ORAL)Indications:di gestive aid Take 1 capsule by mouth once daily. 04/01/2012 Active Coenzyme Q10 (CO Q-10) 10 mg cap Take 300 mg by mouth once daily. Active Melatonin 5 mg tab Take 1 tablet by mouth at bedtime if needed for Sleep. 03/12/2012 03/23/2024 Discontinued (*Med complete/Reg imen complete/Lev el of care change) Active Problems No known active problems Encounters Date Type Department Care Team Description 04/12/2024 Travel 03/16/2024 10:00 AM CDT Office Visit [facility] [address] [place] [address] Tyson Pride MD Musculoskeletal Problem (Consult back pain per Dr. Price) 03/16/2024 Travel 03/11/2024 Travel 03/05/2024 Transcribe Orders [facility] [address] [place] [address] Dre Price MD from Last 3 Months Social History [...] Sign Reading Time Taken Comments Blood Pressure 150/79 03/16/2024 10:03 AM CDT Pulse 60 03/16/2024 10:03 AM CDT Temperature 36.7 C (98.1 F) 03/16/2024 10:03 AM CDT Respiratory Rate 18 06/01/2019 10:09 AM BACK UP SCAN COORDINATOR Oxygen Saturation 99% 05/06/2018 12:15 PM BACK UP SCAN COORDINATOR Inhaled Oxygen Concentration - - Weight 67 kg (147 lb 12.8 oz) 05/06/2018 10:31 A M BACK UP SCAN COORDINATOR Height 154.9 cm (5' 1) 05/06/2018 10:31 AM BACK UP SCAN COORDINATOR Body Mass Index 27.93 05/06/2018 10:31 AM BACK UP SCAN COORDINATOR Plan of Treatment Upcoming Encounters Date Type Department Care Team (Late st Contact Info) Description 04/17/2024 11:20 AM BACK UP SCAN COORDINATOR Office Visit [facility] [address] [place] [address] Tyson Pride MD [address] [place] [address] Arrived 05/29/2024 10:20 AM BACK UP SCAN COORDINATOR Office Visit [facility] [address] [place] [address] Tyson Pride MD [address] [place] [address] Health Maintenance Due Date Last Done Comments Tdap 1960 Depression screening for age 12+ 1961 BMI (ht and wt on same day) for age 18+ 12/28/1967 Hepatitis C screening for age 18-79 12/28/1967 Tetanus booster 1969 Lipids for age 45-75 1994 Mammogram for age 45-75 1994 Zoster (shingles) series for age 50+ (1 of 2) 12/28/19 00 DEXA/DXA scan for age 65+ 2014 Medicare Wellness for age 65+ 2014 Pneumococcal series for age 65+ (1 of 1 - PCV) 015 COVID-19 vaccine series ( - 2023- season) Influenza for age 65+ 01/26/2024 Colonoscopy through age 75 05/06/2028 05/06/2018 Procedures Procedure Name Priority Date/Time Associated Diagnosis Comments AMB EPIDURAL STEROID INJECTION Routine 04/17/2024 8:03 AM BACK UP SCAN COORDINATOR Radiculopathy, lumbar region Spondylolysis, 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 COLONOSCOPY 05/06/2018 10:57 AM BACK UP SCAN COORDINATOR from Last 3 Months or Most Recently Relevant to Health Maintenance Results * COLONOSCOPY (05/06/2018 10:57 AM BACK UP SCAN COORDINATOR) 05/06/2018 10:5 7 AM BACK UP SCAN COORDINATOR Narrative Transcriptions Steve Walker MD - 05/06/2018 11:29 AM CST Patient Name: Zo Yang Procedure Date: 05/06/2018 Gender: Female Date of : 1950 Admit Type: Ambulatory Procedure: [facility]erring MD: Mau Chirinos Indications/Pre-Op Diagnosis: [...] 10:04 AM 05/06/2018 3:27 PM Care Teams Airplane Inspector Relationship Specialty Start Date End Date Mau Chirinos MBBS [address] [place] [address] [place] [id number] PCP - General Internal Medicine 05/01/18
== END 2024-04-17 10:42 | disposition home or self-care (01) ==
LOC: INJ CL 10:42
PROVIDERS: PCP Family Medicine; Visit Provider Family Medicine
DX: M54.16 Radiculopathy, lumbar region (principal); M51.369 Other intervertebral disc degeneration, lumbar region without mention of lumbar back pain or lower extremity pain
CPT/HCPCS: 64483; J1100; Q9966

== ENCOUNTER 2024-09-15 09:13 | Outpatient (CLI) | payer MEDICARE, BC, SELFPAY | END 2024-09-15 09:14 | disposition home or self-care (01) | LOC: INJ CL 09:14 | PROVIDERS: PCP Family Medicine; Visit Provider Family Medicine | DX: M54.16 Radiculopathy, lumbar region (principal); M47.816 Spondylosis without myelopathy or radiculopathy, lumbar region; M51.369 Other intervertebral disc degeneration, lumbar region without mention of lumbar back pain or lower extremity pain | CPT/HCPCS: 64483; J1100; Q9966 ==

== ENCOUNTER 2024-10-08 09:41 | Outpatient (CLI) | payer MEDICARE, BC, SELFPAY | END 2024-10-08 09:42 | disposition home or self-care (01) | PROVIDERS: PCP Family Medicine; Visit Provider Family Medicine | DX: E78.2 Mixed hyperlipidemia (principal); I10 Essential (primary) hypertension; M85.80 Other specified disorders of bone density and structure, unspecified site; R53.83 Other fatigue | CPT/HCPCS: 80048; 80061; 82306; 84443; 84460; 85025 ==

== ENCOUNTER 2024-12-22 10:15 | Outpatient (CLI) | payer MEDICARE, BC, SELFPAY | END 2024-12-22 10:16 | disposition home or self-care (01) | LOC: INJ CL 10:16 | PROVIDERS: PCP Family Medicine; Visit Provider Family Medicine | DX: M54.16 Radiculopathy, lumbar region (principal); M48.062 Spinal stenosis, lumbar region with neurogenic claudication | CPT/HCPCS: 62323; J0702; Q9966 ==

== ENCOUNTER 2025-04-12 13:53 | Emergency (ER) | payer MEDICARE, BC, SELFPAY ==
[2025-04-12 14:07] VITALS: BP 120/75; PULSE 68; RESP 18; TEMP 36.5; O2SAT 97; BMI 28.2
--- NOTE | 2025-04-12 14:11 | CRLHL7_ITS ---
For Patients: As a result of the Century Cures Act, medical imaging exams and procedure reports are released immediately into your electronic medical record. You may view this report before your referring provider. If you have questions, please contact your health care provider. Indication: Tripped and fell Technique: Two views of the right tibia/fibula and three views of the right ankle Comparison: None Findings/Impression: Obliquely oriented, nondisplaced fracture of the distal fibular diaphysis, as seen on lateral views. No additional fractures or malalignment. No ankle effusion. No suspicious osseous lesions. Incidental note of an os fabella an os peroneum. Calcaneal enthesophytes. The soft tissues are unremarkable. Dictated by Steve Dickson MD @ 04/12/2025 2:59:59 PM (Electronically Signed)
--- NOTE | 2025-04-12 15:09 | ED.LOWEXIN ---
HPI - Extremity Injury (Lower) General Time Seen by Provider: 15:09 Date Seen: 04/12/25 Chief Complaint: Extremity Pain/Injury, Lower Stated Complaint: fell and rolled right ankle Time Seen by Provider: 04/12/25 14:56 Source: patient and RN notes reviewed Mode of arrival: ambulatory Limitations: no limitations History of Present Illness HPI Narrative: This 74-year-old female injured her right ankle/lower leg today. She was stepping off the curb and fell outside of [employer] today. She started to have pain in her ankle up into the right lower leg immediately. She took 600 mg of ibuprofen prior to coming in. Patient was coming off the curb and think she rolled her ankle causing her to fall. MD complaint: leg injury and ankle injury Related Data Home Medications ?Medication ?Instructions ?Recorded ?Confirmed aspirin 81 mg chewable tablet 81 mg PO QDAY 12/19/21 10/08/24 Lactobacillus acidophilus 1 10 mg PO QDAY 04/09/22 10/08/24 billion cell capsule bnqankd-[id number]-zrwy 333 mg-133 1 tab PO QDAY 04/09/22 10/08/24 mg-5 mg tablet ergocalciferol (vitamin D2) 10 mcg 1,000 unit PO DAILY 04/09/22 10/08/24 (400 unit) tablet Previous Rx's ?Medication ?Instructions ?Recorded albuterol sulfate 90 mcg/actuation 2 inh inhalation Q4H PRN shortness 05/11/24 breath activated powder inhaler of breath or wheezing #1 ea hydroxyzine HCl 25 mg tablet 25 - 50 mg (1 - 2 x 25 mg) PO QHS 10/08/24 #60 tabs pantoprazole 40 mg tablet,delayed 40 mg PO QDAY #90 tabs 10/21/24 release (Protonix) bupropion HCl 300 mg 24 hr tablet, 300 mg PO QAM #90 tabs 10/26/24 extended release carvedilol 6.25 mg tablet 6.25 mg PO BID #180 tabs 10/26/24 hydrocodone 5 mg-acetaminophen 325 1 tab PO TID PRN pain #20 tabs 11/08/24 mg tablet famotidine 40 mg tablet 40 mg PO QHS #90 tabs 11/23/24 pravastatin 40 mg tablet 40 mg PO QHS #90 tabs 12/10/24 amlodipine 5 mg tablet 5 mg PO QDAY #90 tabs 12/28/24 Allergies Allergy/AdvReac Type Severity Reaction Status Date / Time citalopram Allergy Severe memory loss Verified 12/22/24 10:52 duloxetine Allergy Severe paranoid Verified 12/22/24 10:52 Fish Containing Products Allergy Severe SOB Verified 12/22/24 10:52 gabapentin Allergy Severe memory loss Verified 12/22/24 10:52 amitriptyline Allergy Intermediate feels drunk Verified 12/22/24 10:52 desipramine Allergy Intermediate Depression Verified 12/22/24 10:52 alprazolam Allergy Mild tired Verified 12/22/24 10:52 milnacipran Allergy Mild can't sleep Verified 12/22/24 10:52 morphine Allergy Mild Nausea Verified 12/22/24 10:52 Sulfa (Sulfonamide Allergy Unknown Hives Verified 12/22/24 10:52 Antibiotics) risodronate Allergy Mild jaw pain Uncoded 12/22/24 10:52 Review of Systems Narrative: As per HPI. PFSH PFS Medical History Primary hypertension ?I10 - Essential (primary) hypertension (ICD-10) Mixed hyperlipidemia ?E78.2 - Mixed hyperlipidemia (ICD-10) Osteopenia ?M85.80 - Other specified disorders of bone density and structure, unspecified site (ICD-10) Insomnia ?G47.00 - Insomnia, unspecified (ICD-10) History of cystocele (2006) ?Z87.448 - Personal history of other diseases of urinary system (ICD-10) History of adenomatous polyp of colon (04/2018) ?Z86.010 - Personal history of colonic polyps (ICD-10) Gastroesophageal reflux disease ?K21.9 - Gastro-esophageal reflux disease without esophagitis (ICD-10) Fibromyalgia ?M79.7 - Fibromyalgia (ICD-10) Anxiety and depression ?F41.9 - Anxiety disorder, unspecified (ICD-10) ?F32.A - Depression, unspecified (ICD-10) Allergic rhinitis ?J30.9 - Allergic rhinitis, unspecified (ICD-10) Surgical History Hx of bilateral cataract extraction ?Z98.41 - Cataract extraction status, right eye (ICD-10) ?Z98.42 - Cataract extraction status, left eye (ICD-10) History of total abdominal hysterectomy and bilateral salpingo-oophorectomy (1991) ?Z90.710 - Acquired absence of both cervix and uterus (ICD-10) ?Z90.722 - Acquired absence of ovaries, bilateral (ICD-10) ?Z90.79 - Acquired absence of other genital organ(s) (ICD-10) History of laparoscopic appendectomy (10/25/07) ?Z90.49 - Acquired absence of other specified parts of digestive tract (ICD-10) History of inguinal hernia repair (02/22/10) ?Z98.890 - Other specified postprocedural states (ICD-10) ?Z87.19 - Personal history of other diseases of the digestive system (ICD-10) Family History Mother Colon cancer Diabetes Stroke Father Coronary artery disease, Onset Age: 65 Social History Narrative: , 2 kids, non-smoker, social EtOH, retired Smoking Status: Never smoker How often do you have a drink containing alcohol: never How often do you have six or more drinks on one occasion: Never AUDIT-C Alcohol total score: 0 Non-prescribed substance use: denies use service: No Exam Const: Vital Signs, click to edit/add: Vital Signs - 24 hr 04/12/25 14:07 Temperature 97.7 F Pulse Rate [Pulse Oximeter] 68 Respiratory Rate 18 Blood Pressure [Ri ght Upper Arm] 120/75 Pulse Oximetry 97 This 74-year-old female is alert, interactive, no apparent distress, lying in bed in exam room 5. She has a very superficial abrasion over her anterior knee, no active bleeding. There are no wounds on this lower extremity. The ankle is not swollen or tender, ankle mortise seems to be intact. Her pain is along the right lateral leg. Neurovascular is intact. Documenting provider has reviewed patient's vital signs: yes Course Course ED Course: Nursing staff ordered an x-ray and appropriately a tib-fib. On the lateral view you can see a strange lying that looks like a fracture but is not seen on other images. On the tib-fib images, you can definitely see a fibular fracture. Patient is advised of the fibular fracture, did provide her copies of her x-ray reports. Reviewed with her that I will talk to Orthopedics. Reevaluation(s) Time of Reevaluation #1: 16:25 Reevaluation #1: Have updated patient on discussion with Orthopedics. The cam walker is on. 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 She does feel that this person would be able to help her. Reviewed with them that we 1st need to see if she will tolerate toe-touch weight-bearing, tolerate crutches. If she tolerates the crutches, would prefer that she be off the foot. If she has to go with a walker, we can allow some toe-touch weight-bearing but unclear if she will tolerate this at this time. Time of Reevaluation #2: 16:49 Reevaluation #2: Patient tolerated crutches fine, felt to be safe on them. Will discharge to home. Consultations Consultation #1: Did talk to Sammi Logan from Orthopedics. She agrees with the long cam walker boot. This may be an unstable fracture. She would prefer patient be nonweightbearing. If she needs to toe-touch she can. We will try crutches, if the crutches do not work, can try a walker with some toe touch. If patient is not tolerating this, she may need to come into the hospital. Time: 15:33 Vital Signs Vital signs: Initial Vital Signs Temperature 97.7 F 04/12/25 14:07 Temperature Source Temporal Artery Scan 04/12/25 14:07 Pulse Rate 68 04/12/25 14:07 Respiratory Rate 18 04/12/25 14:07 Blood Pressure 120/75 04/12/25 14:07 Blood Pressure Mean 90 04/12/25 14:07 Blood Pressure Position Supine 04/12/25 14:07 Pulse Oximetry 97 04/12/25 14:07 Vital Signs Temperature 97.7 F 04/12/25 14:07 Pulse Rate 68 04/12/25 14:07 Respiratory Rate 18 04/12/25 14:07 Blood Pressure 120/75 04/12/25 14:07 Pulse Oximetry 97 04/12/25 14:07 Temperature 97.7 F 04/12/25 14:07 Pulse Rate 68 04/12/25 14:07 Respiratory Rate 18 04/12/25 14:07 Blood Pressure 120/75 04/12/25 14:07 Pulse Oximetry 97 04/12/25 14:07 MDM - Extremity Injury (Lower) Imaging Data XR right tib fib: Attestation: I have reviewed the pertinent imaging results. My impression: Patient has a fibula fracture. Radiologist's impression: Patient: ELFEGO STEPHENS Facility:?[facility] Patient ID:?[id number] Site Patient ID:?[id number]. Site :?1950 Study:?XRay-Extremity Right TIB FIB 2V-04/12/2025 2:52:37 PM Ordering Physician:?PROVIDER TEMP Final Report: Indication: Tripped and fell Technique: Two views of the right tibia/fibula and three views of the right ankle Comparison: None Findings/Impression: Obliquely oriented, nondisplaced fracture of the distal fibular diaphysis, as seen on lateral views. No additional fractures or malalignment. No ankle effusion. No suspicious osseous lesions. Incidental note of an os fabella an os peroneum. Calcaneal enthesophytes. The soft tissues are unremarkable. Dictated by Steve Dickson MD @ 04/12/2025 2:59:00 PM (Electronic Signature) XR right ankle: Attestation: I have reviewed the pertinent imaging results. Radiologist's impression: [facility]: [facility] Facility:?[facility] Patient ID:?[id number] Site Patient ID:?[id number]. Site :?[id number] Study:?XRay-Extremity Right TIB FIB 2V-04/12/2025 2:52:37 PM Ordering Physician:?PROVIDER TEMP Final Report: Indication: Tripped and fell Technique: Two views of the right tibia/fibula and three views of the right ankle Comparison: None Findings/Impression: Obliquely oriented, nondisplaced fracture of the distal fibular diaphysis, as seen on lateral views. No additional fractures or malalignment. No ankle effusion. No suspicious osseous lesions. Incidental note of an os fabella an os peroneum. Calcaneal enthesophytes. The soft tissues are unremarkable. Dictated by Steve Dickson MD @ 04/12/2025 2:59:00 PM (Electronic Signature) Discharge Plan Discharge Clinical Impression: Fracture, fibula closed, shaft Qualifiers: Encounter type: initial encounter Fracture morphology: oblique Fracture alignment: nondisplaced Laterality: right Qualified Code(s): S82.434A - Nondisplaced oblique fracture of shaft of right fibula, initial encounter for closed fracture Patient Disposition: Home, Self-Care Condition: Stable Instructions: Leg Fracture (ED), Crutch Instructions (ED) Additional Instructions: Use crutches for nonweightbearing on this right lower extremity. If you absolutely have to, can do light toe-touch for stability. Leave the cam walker on. You will want to try to elevate this leg as much as able, have the leg heart level or above. Tylenol 1000 mg 3 times a day baseline for pain. Can supplement with ibuprofen if needed for extra pain management. You will need to contact the orthopedic clinic tomorrow, they will get you scheduled for a follow-up and do further imaging. Phone number for this is [phone]. Prescriptions: No Action ergocalciferol (vitamin D2) 10 mcg (400 unit) tablet 1,000 unit PO DAILY Lactobacillus acidophilus 1 billion cell capsule 10 mg PO QDAY [id number]-dhrhgvuwq-pjhf 333-133-5 mg tablet 1 tab PO QDAY albuterol sulfate 90 mcg/actuation aerosol powdr breath activated 2 inh inhalation Q4H PRN (Reason: shortness of breath or wheezing) Qty: 1 1RF hydroxyzine HCl 25 mg tablet 25 - 50 mg PO QHS Qty: 60 1RF aspirin 81 mg tablet,chewable 81 mg PO QDAY pantoprazole [Protonix] 40 mg tablet,delayed release (DR/EC) 40 mg PO QDAY Qty: 90 3RF bupropion HCl 300 mg tablet extended release 24 hr 300 mg PO QAM Qty: 90 1RF carvedilol 6.25 mg tablet 6.25 mg PO BID Qty: 180 3RF Rx Instructions: must administer with a meal/food hydrocodone-acetaminophen 5-325 mg tablet 1 tab PO TID PRN (Reason: pain) Qty: 20 0RF famotidine 40 mg tablet 40 mg PO QHS Qty: 90 3RF pravastatin 40 mg tablet 40 mg PO QHS Qty: 90 2RF amlodipine 5 mg tablet 5 mg PO QDAY Qty: 90 2RF Follow Up/Referrals: Vic Verdin MD [Primary Care Provider, Family Practice] Stand Alone Forms: [facility] Info Instructions
== END 2025-04-12 17:26 | disposition home or self-care (01) ==
PROVIDERS: Emergency Provider Family Medicine; PCP Family Medicine
DX: S82.64XA Nondisplaced fracture of lateral malleolus of right fibula, initial encounter for closed fracture (principal); S80.211A Abrasion, right knee, initial encounter; Z79.82 Long term (current) use of aspirin; X50.0XXA Overexertion from strenuous movement or load, initial encounter; W01.0XXA Fall on same level from slipping, tripping and stumbling without subsequent striking against object, initial encounter; Y93.01 Activity, walking, marching and hiking; Y92.524 Gas station as the place of occurrence of the external cause
CPT/HCPCS: 73590; 73610; 99283